=== PATIENT | male | born 1945 | race Caucasian/White ===

== ENCOUNTER 2017-04-19 18:37 | Inpatient (IN) | payer MEDICARE ==
[~2017-04-19] VITALS: Ht 182.9 cm; Wt 109.8 kg
[~2017-04-19 18:37] MED LIST: A & D OINTMENT1 OIN EXT; ASPIRIN325 M2 PO; ATIVAN0.5 MG PO; AUGMENTIN 875-1 EACH PO; CELEXA10 MG PO; CEPHALEXIN500 M3 PO; CITALOPRAM HBR20 MG PO; COUMADIN 10 MG10 MG PO; COUMADIN7.5 M1 PO; ESCITALOPRAM20 MG PO; FISH OIL500 M1 PO; FOLIC ACID 1 MG PO; GOOD NEIGHBOR100 M5 PO; LASIX20 MG PO; LOPRESSOR 25MG25 MG PO; LOVENOX 6060 MG/0.6 SC; MEDROL DOSEPAK1 PAC PO; MULTIVITAMIN1 TAB PO; PREDNISONE10 M2 PO; PRILOSEC40 MG PO; VENTOLIN H0.09 MG/Ac INH; VITAMIN C500 M3 PO; ZINC OXIDE EXT; ZINC SULFATE 2220 MG PO
--- NOTE | 2017-04-19 18:41 | NUR ---
PT SON #[phone] ABHI
--- NOTE | 2017-04-19 18:42 | NUR ---
PT MEDICATED WITH NARCAN 0.4MG IV
--- NOTE | 2017-04-19 18:49 | ED AMS/SEIZURE/WEAK/DIZZY ---
History of Present Illness General Chief Complaint: General Adult Stated Complaint: UNRESPONSIVE Source: patient, family, old records Exam Limitations: intoxication Vital Signs & Intake/Output Vital Signs & Intake/Output Vital Signs Date Time Temp Pulse Resp B/P B/P Pulse O2 O2 Flow FiO2 Mean Ox Delivery Rate 04/22 0807 95 Nasal 4.0L Cannula 04/22 0600 83 16 100/65 04/22 0400 99.6 98 18 134/78 04/22 0400 93 Nasal 4.0L Cannula 04/22 0200 98 18 119/74 04/22 0000 99.2 92 16 134/70 04/22 0000 94 Nasal 4.0L Cannula 04/22 0000 99.2 92 16 134/70 94 Nasal 4.0L Cannula 04/21 2200 106 16 136/81 04/21 2000 100.0 94 16 124/74 04/21 2000 96 Nasal 4.0L Cannula 04/21 1800 88 16 114/70 04/21 1621 94 Nasal 5.0L Cannula 04/21 1600 99.6 92 16 92/54 04/21 1600 95 Nasal 5.0L Cannula 04/21 1401 93 Nasal 5.0L Cannula ED Intake and Output 04/22 0000 04/21 1200 Intake Total 2019 1199 Output Total 4020 650 Balance -2000 549 Intake, IV 1988 979 Intake, Oral 30 220 Number 0 0 Bowel Movements Output, Urine 4020 650 Patient 97.522 kg Weight Allergies Coded Allergies: NO KNOWN ALLERGIES (UNKNOWN 04/21/17) Reconcile Medications Citalopram Hydrobromide (Citalopram HBr) 20 MG TABLET 1 TAB PO DAILY ANXIETY/ DEPRESSION (Reported) Omeprazole (Prilosec) 40 MG ECC 1 TAB PO DAILY GERD (Reported) Warfarin Sodium (Coumadin) 7.5 MG TABLET 1 TAB PO DAILY BLOOD THINNER ( Reported) Triage Nurses Notes Reviewed? yes HPI: 72M PMH atrial fibrillation, PE on Coumadin, polysubstance abuse with history of Methadone overdose brought in by family, found somnolent by son, progressed to unresponsive. On arrival to ED patient was apneic, unresponsive, pale. He was moved to a stretcher and immediately given Narcan IV 0.4mg. He then slowly woke up and became minimally responsive, but his breathing greatly improved. HR was 70's but improved to 80's with Narcan. After a few minutes he once again became somnolent and was given 0.8mg IV Narcan with excellent response. Now awake and able to answer questions with no complaints, placed on 100% oxygen. Per patient 's son they have Morphine and Methadone at the house and he is not sure what his father took. The son has now left the ER. Past History Travel History Traveled to [place] past 21 day No Medical History Any Pertinent Medical History? 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 FATHER (succumbed to heart failure at age 87 years). Hx Contributory? No Review of Systems Review of Systems Constitutional: Reports: no symptoms. EENTM: Reports: no symptoms. Respiratory: Reports: no symptoms. Cardiovascular: Reports: no symptoms. GI: Reports: no symptoms. Genitourinary: Reports: no symptoms. Musculoskeletal: Reports: no symptoms. Skin: Reports: no symptoms. Neurological/Psychological: Reports: no symptoms. Hematologic/Endocrine: Reports: no symptoms. Immunologic/Allergic: Reports: no symptoms. All Other Systems: Reviewed and Negative Physical Exam Physical Exam General Appearance: well developed/nourished, lethargic, mild distress, intoxicated, obese Head: atraumatic, normal appearance Eyes: Bilateral: other (Pupils pinpoint on arrival). Ears, Nose, Throat: normal pharynx, normal ENT inspection Neck: normal inspection, supple, full range of motion Respiratory: no respiratory distress, bilateral coarse breath sounds Cardiovascular: regular rate/rhythm Peripheral Pulses: 2+ femoral (R), 2+ femoral (L) Gastrointestinal: soft, non-tender Back: normal inspection, normal range of motion Extremities: normal range of motion Skin: intact, normal color Core Measures ACS in differential dx? No CVA/TIA Diagnosis: No Severe Sepsis Present: No Septic Shock Present: No Progress Differential Diagnosis: arrythmia, alcohol intoxication, anemia, benign positional vertigo, CVA/stroke, dehydration, drug intoxication, encephalitis, electrolyte imbalance, GI bleed, hypoglycemia, hypoxia, intracranial Hem., intracranial mass/tumor, labrynthitis, meningitis, Meniere's disease, migraine DIXON, multiple sclerosis, pneumonia, postural hypotension, presyncope, post- traumatic vertigo, sepsis, seizure disorder, subarachnoid Hem., UTI/pyelo, vertebrobasilar insuff Plan of Care: Orders Procedure Date/time Status PROTHROMBIN TIME 04/23 06 Active ICU LAB BUNDLE 04/23 06 Active CBC WITHOUT DIFFERENTIAL 04/23 06 Active EKG 04/22 1301 Active Martins, Insertion/Removal/Asses 04/22 0808 Active LIPASE 04/22 0540 Complete Lab Add-on Test 04/22 UNK Active Treatment of Swallowing 04/21 UNK Complete INCENTIVE SPIROMETRY TRX CHG 04/21 UNK Complete AEROSOL CHG 04/21 UNK Complete OXYGEN 04/21 UNK Complete OXYGEN DAILY CHARGE 04/21 UNK Complete THERAPIST ORDERS 04/21 UNK Complete Current Medications Sig/Latosha Start time Last Medication Dose Stop Time Status Admin Warfarin Sodium 7.5 MG COUMADIN 1700 ONE 04/22 1700 UNVr (Coumadin) 04/22 1701 Amoxicillin/ 875 MG Q12 04/22 1000 AC 04/22 Clavulanate Potassium 1021 (Augmentin) Citalopram 30 MG DAILY 04/22 1000 AC 04/22 Hydrobromide 1021 (Celexa) Lorazepam 2 MG ONE ONE 04/21 1430 CAN (Ativan) 04/21 1431 Folic Acid 1 MG DAILY 04/21 1301 AC 04/22 (Folic Acid) 1021 Multivitamins 1 TAB DAILY 04/21 1301 AC 04/22 (Theragran Vitamins) 1021 Thiamine HCl 100 MG DAILY 04/21 1301 AC 04/22 (Vitamin B1) 1021 Lorazepam 0 Q1P PRN 04/21 1300 AC (Ativan) Ondansetron HCl 4 MG Q6P PRN 04/21 0200 AC 04/21 (Zofran) 0803 Albuterol Sulfate 3 ML EVERY 4 HRS/AWAKE 04/20 1600 AC 04/22 (Proventil) 1215 Famotidine 20 MG DAILY 04/20 1000 AC 04/22 (Pepcid) 1021 Laboratory Tests 04/22/17 0540: Anion Gap 8, Estimated GFR > 60, Glucose 115 H, Calcium 8.4, Phosphorus 1.8 L, Magnesium 2.1, Total Bilirubin 1.4 H, AST 790 H, ALT 1145 H, Ammonia 24, Albumin 3.0 L, Lipase 419 H, PT 18.0 H, INR 1.72 H, CBC w Diff NO MAN DIFF REQ, RBC 4.29 L, MCV 84.9, MCH 27.9, RDW 18.1 H, MPV 8.6, Gran % 86.0 H, Lymphocytes % 9.0 L, Monocytes % 4.7, Eosinophils % 0.1, Basophils % 0.2, Absolute Granulocytes 8.3 H, Absolute Lymphocytes 0.9 L, Absolute Monocytes 0.5, Absolute Eosinophils 0, Absolute Basophils 0, PUBS MCHC 32.8 L Diagnostic Imaging: Viewed by Me: Radiology Read. Discussed w/RAD: Radiology Read. Radiology Impression: PATIENT: CARLOS TUCKER PRESENT AGE: 72 PATIENT ACCOUNT NO: [id number] : 47 LOCATION: [facility] ORDERING PHYSICIAN: MAGO BEARD MD SERVICE DATE: 04/19/17 EXAM TYPE: RAD - XRY-PORTABLE CHEST XRAY EXAMINATION: XR PORTABLE CHEST CLINICAL INFORMATION: Narcotic overdose. Unresponsive. COMPARISON: Chest radiography 03/01/2015. TECHNIQUE: Portable frontal view of the chest was obtained. FINDINGS: The lungs are well expanded. There is mild peribronchial thickening. No florid pulmonary edema. No definitive lobar consolidation. No mediastinal widening. No acute osseous abnormalities. IMPRESSION: 1. No overt/florid pulmonary edema. 2. Mild peribronchial thickening may reflect a degree of small airways inflammation or subtle interstitial edema. DICTATED BY: RAIN CHAPA MD DATE/TIME DICTATED:1945 [employer]SEM[employer] SUPERVISOR:WILLIE DATE/TIME TRANSCRIBED:04/19/171945 CONFIDENTIAL, DO NOT COPY WITHOUT APPROPRIATE AUTHORIZATION. <Electronically signed in Other Vendor System> SIGNED BY: RAIN CHAPA MD 04/19/171956 Initial ED EKG: atrial fibrillation, rate controlled, no ST changes Departure Departure Disposition: STILL A PATIENT Condition: Stable Clinical Impression Primary Impression: Methadone overdose Secondary Impressions: Acute renal failure, Acute respiratory failure with hypoxia, Hyperkalemia, Lactic acidosis Referrals: TOMMIE MENDEZ MD (PCP/Family) Departure Forms: Customer Survey General Discharge Information Admission Note Spoke With: MALU PIERCE MD Documentation of Exam: Documentation of any treatments & extenuating circumstances including Concerns Regarding Discharge (functional status, medication knowledge or non-compliance, living conditions, etc.) that warrant an admission rather than observation: ACUTE RESPIRATORY FAILURE IN THE SETTING OF OPIOID OVERDOSE WITH RENAL FAILURE, LACTIC ACIDOSIS, HYPERKALEMIA. WILL REQUIRE ICU ADMISSION FOR POSSIBLE NARCAN DRIP, MONITOR OF RENAL FUNCTION, POSSIBLE DIALYSIS, NEPHROLOGY AND CRITICAL CARE CONSULTS. Critical Care Note Critical Care Note Critical Care Time: 75-104 min
--- NOTE | 2017-04-19 18:56 | NUR ---
PT BROUGHT IN BY SON AFTER BEING FOUND WITH ALTERED MENTAL STATUS. PER SON, HE BELIEVED PT HAD BEEN DRINKING ALCOHOL AND MIXING WITH PRESCRIBED MEDICATION. PT ARRIVED UNRESPONSIVE WITH PINPOINT PUPILS, LIGHT GROANING TO PAINFUL STIMULI, UNABLE TO ANSWER ANY QUESTIONS RE: MEDICAL HX OR WHAT HE HAD INGESTED. TWO IVs ESTABLISHED IMMEDIATELY UPON ARRIVAL 0.4 NARCAN GIVEN IMMEDIATELY WITH SOME EFFECT.
[2017-04-19 19:19] LABS: ABSOLUTE BASOPHIL COUNT 0 /CUMM (0.0-0.2); ABSOLUTE EOSINOPHIL COUNT 0 /CUMM (0.0-0.7); ABSOLUTE GRANULOCYTE CT 13.4 /CUMM (1.4-6.5); ABSOLUTE LYMPH COUNT 0.8 /CUMM (1.2-3.4); BASOPHIL % 0.2 % (0.0-2.0); EOSINOPHIL % 0.1 % (0-5); GRANULOCYTE % 88.2 % (42.2-75.2); HEMATOCRIT 48.7 % (42-52); MEAN CORPUSCULAR HGB 27.5 PG (27.0-31.0); MEAN CORPUSCULAR HGB CONC 31.6 G/DL (33.0-37.0); MEAN CORPUSCULAR VOLUME 86.9 FL (80.0-94.0); PLATELET COUNT 230 /CUMM (130-400); RBC DISTRIBUTION WIDTH 18.9 % (11.5-14.5); WHITE BLOOD CELL COUNT 15.2 /CUMM (4.8-10.8)
--- NOTE | 2017-04-19 19:51 | NUR ---
CRITICAL TEST RESULTS [id number] CARLOS TUCKER 72 M TESTS AND RESULTS: POTASSIUM 7.9, LACTIC ACID 9.7 Results received and read back by: BHUPENDRA FOX Results received date and time: 04/19/171951 The following provider was notified of the results, and read the results back: MD BEARD Notified date and time: 04/19/17 at 1951
--- NOTE | 2017-04-19 19:57 | RADIOLOGY REPORT ---
EXAMINATION: XR PORTABLE CHEST CLINICAL INFORMATION: Narcotic overdose. Unresponsive. COMPARISON: Chest radiography 03/01/2015. TECHNIQUE: Portable frontal view of the chest was obtained. FINDINGS: The lungs are well expanded. There is mild peribronchial thickening. No florid pulmonary edema. No definitive lobar consolidation. No mediastinal widening. No acute osseous abnormalities. IMPRESSION: 1. No overt/florid pulmonary edema. 2. Mild peribronchial thickening may reflect a degree of small airways inflammation or subtle interstitial edema.
--- NOTE | 2017-04-19 20:36 | NUR ---
PT MORE AWAKE AND RESPONSIVE. ANSWERING QUESTIONS. AWARE OF WHERE HE IS AND WHY. ABLE TO GIVE FULL NAME AND . STILL SOMNOLENT, BUT EASILY AROUSED
--- NOTE | 2017-04-19 21:36 | NUR ---
BLOOD DRAWN AND SENT TO LAB [facility]
--- NOTE | 2017-04-19 22:10 | NUR ---
PT ASSIGNED TO ROOM 105 BED 1
--- NOTE | 2017-04-19 22:12 | History & Physical ---
CHARLENE FONSECA MD 04/19/17 2211: General Information and HPI MD Statement: I have seen and personally examined CARLOS TUCKER and documented this H&P. The patient is a 72 year old M who presented with a patient stated chief complaint of overdose and hypoxic respiratory failure. Source of Information: patient, family, old records Exam Limitations: unable to give history, intoxication History of Present Illness: 72 year old male with past medical history significant for HCV, atrial fibrillation and pulmonary embolism on warfarin, polysubstance abuse with multiple overdose admissions including one for methadone at [facility] was brought to the ED by the patient's son, González [phone], for increasing somnolence and difficulty breathing over the last several hours. On arrival the patient was apneic and unresponsive. After Narcan IV 0.4mg administration his breathing improved and became more arousable and responsive. He again became somnolent and was given 0.8mg IV Narcan with excellent response. Patient is now breathing stable with supplemental oxygen and non rebreather mask but still lethargic, without complaints but unable to provide much history. Patient reports injecting 2 bags of heroin. The patient's son González reports they were at a alliance party in [facility] where the patient admitted he took morphine from his brother and was drinking alcohol the night prior to admission. Per the son, patient was completely normal this morning but at [address] [facility] the patient was lethargic and during the drive his level of arousal and respiratory status dramatically worsened. The son knows that the patient took morphine and alcohol the night prior but is unsure of any exposures on the day of admission and denies any knowledge of the patient ever using heroin. Patient's son reports patient takes coumadin, lexapro and was prescribed amoxicillin uncertain the reason. Allergies/Medications Allergies: Coded Allergies: NO KNOWN ALLERGIES (11/12/12) Compliance With Home Meds: UNKNOWN Past History Travel History Traveled to [place] past 21 day No Medical History Neurological: NONE EENT: NONE Cardiovascular: AFIB Respiratory: NONE Gastrointestinal: GERD, Peñaloza's esophagua history of diaphragmatic hernia history of bilateral inguinal hernia history of esophageal ulcer Hepatic: hepatitis C Renal: benign prost hyperplasia Musculoskeletal: NONE Psychiatric: alcohol dependence, depression, polysubstance abuse Endocrine: NONE Blood Disorders: NONE Cancer(s): NONE LINUX ADMIN/Reproductive: NONE History of MRSA: No History of VRE: No History of CDIFF: No Pneumonia Vaccine: 11/15/12 Influenza Vaccine: 07/05/12 Surgical History Surgical History: ABD FISTULA Past Family/Social History Family History Relations & Conditions if any MOTHER (Succumbed to alcohol abuse at 53 years). FATHER (succumbed to heart failure at age 87 years). Psychosocial History Services at Home: None Review of Systems Review of Systems Constitutional: Reports: see HPI. Exam & Diagnostic Data Last 24 Hrs of Vital Signs/I&O Vital Signs Date Time Temp Pulse Resp B/P B/P Pulse O2 O2 Flow FiO2 Mean Ox Delivery Rate 04/19 2243 98.2 89 18 127/94 94 Non 100% ReBreather 04/19 2154 97.3 90 24 106/67 93 04/19 1926 Non ReBreather 04/19 1922 66 102/64 04/19 1907 97.2 Intake & Output 04/20 0800 04/20 0000 04/19 1600 Intake Total 2000 Output Total 1200 Balance 800 Intake, IV 2000 Output, Urine 1200 Physical Exam General Appearance Moderate Distress, lethargic, follows commands, responsive to touch and voice inconsistently, oriented to self only Skin No Rashes, No Breakdown Skin Temp/Moisture Exam: Warm/Dry Neck Supple, No JVD Cardiovascular Normal S1, Normal S2, No Murmurs (irregular rhythm) Lungs rhonchi b/l bases, diminshed air entry Abdomen Normal Bowel Sounds, Soft, No Tenderness, No Masses Neurological patient moving all extremities, responsive, no slurred speech, unable to perform neuro exam because of mental status Extremities No Edema, Normal Pulses, No Tenderness/Swelling Vascular Normal Pulses, Pulses Symmetrical Last 24 Hrs of Labs/Sebastián: Laboratory Tests 04/19/172154: Urine Osmolality 194 L 04/19/172154: Urine Opiates Screen > 4000.00 H, Methadone Screen 46, Barbiturate Screen < 60, Ur Phencyclidine Scrn < 6.00, Amphetamines Screen > 1450 H, U Benzodiazepines Scrn < 85, Urine Cocaine Screen < 50, Urine Cannabis Screen < 5.00, Urinalysis MOD H, Urine Color YEL, Urine Clarity CLEAR, Urine pH 6.0, Ur Specific [place] 1.010, Urine Protein NEG, Urine Ketones NEG, Urine Nitrite NEG, Urine Bilirubin NEG, Urine Urobilinogen 0.2, Ur Leukocyte Esterase NEG, Ur Microscopic SEDIMENT EXAMINED, Urine RBC 1-3, Urine WBC 1-3 H, Ur Epithelial Cells FEW, Urine Hemoglobin SMALL H, Urine Glucose NEG 04/19/17 2145: Anion Gap 18 H, Estimated GFR 15 L, BUN/Creatinine Ratio 8.5, Total Bilirubin 0.6, Direct Bilirubin 0.5 H, AST 158 H, ALT 137 H, Alkaline Phosphatase 62, Total Protein 7.3, Albumin 4.0, PT 28.4 H, INR 2.73 H, APTT 34, Ethylene Glycol Pending, Propylene Glycol Pending, Methyl Alcohol, Quant Pending 04/19/172128: Lactic Acid 5.8 H 04/19/172038: Serum Osmolality Cancelled 04/19/17 1900: pH 7.21 *L, pCO2 28 L, pO2 70 L, HCO3 11 L, ABG O2 Sat (Measured) 92.0 L, Carboxyhemoglobin 0.9 L, O2 Concentration % 80%, O2 Delivery Method PRB(1 VALVE ONLY), Phlebotomy Draw Site RIGHT RADIAL 04/19/17 1855: Anion Gap 27 H, Estimated GFR 13 L, BUN/Creatinine Ratio 6.2 L, Glucose 108 H, Serum Osmolality 310 H, Lactic Acid 9.7 H, Calcium 8.5, Magnesium 2.4 H, Total Bilirubin 0.6, AST 93 H, ALT 60, Alkaline Phosphatase 75, Creatine Kinase 1404 H, Troponin I 1.00 *H, Total Protein 8.8 H, Albumin 4.9, Globulin 3.9, Albumin/Globulin Ratio 1.3, CBC w Diff MAN DIFF ORDERED, RBC 5.60, MCV 86.9, MCH 27.5, RDW 18.9 H, MPV 9.0, Gran % 88.2 H, Lymphocytes % 5.2 L, Monocytes % 6.3, Eosinophils % 0.1, Basophils % 0.2, Absolute Granulocytes 13.4 H, Segmented Neutrophils 74, Band Neutrophils 9 H, Absolute Lymphocytes 0.8 L, Lymphocytes 9 L, Monocytes 8, Absolute Monocytes 1.0 H, Absolute Eosinophils 0 , Absolute Basophils 0, Platelet Estimate ADEQUATE, Normochromic RBCs VERIFIED, Anisocytosis 1+, Macrocytic Cells FEW, PUBS MCHC 31.6 L, Salicylates < 1.0, Acetaminophen < 10.0 L, Serum Alcohol < 10.0 04/19/17 0100: Lactic Acid Cancelled Microbiology 04/19 2223 UPPER RESP: Surveillance Culture - ORD 04/19 2223 GI: Surveillance Culture - ORD 04/19 2155 URINE ROUT: Urine Culture - RECD 04/19 2129 BLOOD: Blood Culture - RECD 04/19 2059 BLOOD: Blood Culture - RECD 04/19 2041 URINE ROUT: Urine Culture - CAN Cancelled: DUPLICATE ORDER Diagnostic Data EKG Results atrial fibrillation and peaked T waves CXR Results mild peribronchial thickening Other Results CT Head negative CT Chest and Abd/Pelvis Bilateral lower lobe pneumonia with patchy inferior right upper lobe airspace disease. Recommendation is for a followup chest series to be obtained following treatment and/or resolution of symptoms to assure resolution of this appearance. Left grade 1-2 hydroureteronephrosis without a demonstrable obstructive ureteral calculus. Hiatal hernia Assessment/Plan Assessment: 72 year old male with past medical history significant for HCV, atrial fibrillation and pulmonary embolism on warfarin, polysubstance abuse with multiple overdose admissions presents for presumed opioid overdose, acute hypoxic respiratory failure, acute renal failure, hyperkalemia and lactic acidosis. 1. Altered mental status: likely due to narcotic overdose, Utox + for amphetamine and opiates, patient clinically responded both respiratory and level of arousal to Narcan IV x 2 doses, pinpoint pupils assymetric R>L Opioid overdose: Begin naloxone infusion Admit to ICU Aspiration precautions, keep head of bed elevated Non contrast CT Head to rule out CVA NPO, swallow evaluation in AM Psych consultation for multiple overdoses Continue lexapro if swallow evaluation passed 2. Acute hypoxic respiratory failure: precipitated by opioid overdose, possibly heroin and prescription pain medications, patient responsive to naloxone and now on infusion. Currently afebrile with leukocytosis and CT evidence of pneumonia Supplemental oxygen via nonrebreather mask Titrate to Spo2 >90% CT Chest shows bilateral lower lobe pneumonia with patchy inferior right upper lobe airspace disease Started IV Unasyn for presumed aspiration pneumonia Pulmonology/Critical care consult TRC evaluation Sputum culture, urine culture, and blood cultures ordered 3. Acute renal failure: cooney placed, creatinine 4.5 at admission, likely prerenal versus intrarenal, BUN/Cr ratio was low at admission supporting intrarenal pathology Normal baseline renal function 1 year ago IVF hydration Trend BUN and creatinine, monitor electrolytes Nephrology consult Renal ultrasound Grade 1-[address] without demonstrable obstructive ureteral calculus but no IV contrast was used in this study Consider evaluation for nephrolithiasis with IV contrast once renal function improves Consider urology consultation for laser lithotripsy and/or stent placement 4. Hyperkalemia: secondary to acute renal failure, peaked T waves on presentation EKG Received calcium gluconate 1gram IV to stabilize the cardiac membrane in ED 10 units regular insulin and 25g IV dextrose Kayelexate Trend serum potassium levels, repeat above treatments as necessary until K<6 5. Acid/Base: ABG 7.2/28/70/11 Anion gap metabolic acidosis with acute respiratory compensation Lactic acidosis-elevated at 9.7 on admission, CO2 16 on admission Anion gap 27 on admission, secondary to elevated lactic acid Sodium bicarbonate drip began in ED, pH 7.2, stopped after 1000ml Continue IVF hydration with Normal Saline @ 150cc/hr Repeat blood gas in the AM Check serum osmoles, CK Elevated osmolar gap, follow up send out methanol, ethylene and propylene glycol Trend renal function and electrolytes 6. Positive troponins: likely secondary to demand ischemia in the setting of acute hypoxic respiratory failure First troponin 1.00 Trend serial troponins and EKGs Cardiology consult Echocardiogram No heparin gtt at this time 7. Atrial fibrillation: INR therapeutic 2.73 on coumadin Daily PT/INR, dose coumadin 7.5mg in AM Monitor heart rate 8. HepC: check liver function Pantoprazole NPO pending swallow evaluation DVT ppx-on coumadin INR therapeutic Full code As Ranked By This Provider Problem List: 1. Chronic hepatitis C 2. Depression 3. Opioid abuse 4. Acute respiratory failure with hypoxia 5. Altered mental status 6. Acute renal failure 7. Lactic acidosis 8. Hyperkalemia Core Measures/Miscellaneous Acute Coronary Syndrome ACS Diagnosis: No Cerebrovascular Accident CVA/TIA Diagnosis: No Congestive Heart Failure CHF Diagnosis: No VTE (View Protocol) VTE Risk Factors: Acute medical illness, Age > 40 No [facility] VTE prophylaxis d/t: No contraindications No VTE Pharm Prophylaxis d/t: No contraindications VTE Diagnosis: No VTE Type: NONE VTE Confirmed by (Test): NONE Sepsis (View Protocol) Severe Sepsis Present: No Septic Shock Septic Shock Present: No Miscellaneous Documentation Attending Case Discussed With: MALU PIERCE MD Primary Care Physician: TOMMIE MENDEZ MD Patient sees these Specialists none Level of Patient Care: Critical Care (CRI) STAN BURRIS, [facility] 04/19/17 5008: General Information and HPI Allergies/Medications Home Med list Amoxicillin/Potassium Clav (Augmentin 875-125 Tablet) 875 MG-125 MG TABLET 1 TAB PO BID ANTIBIOTIC, INFECTION Citalopram Hydrobromide (Citalopram HBr) 20 MG TABLET 1 TAB PO DAILY ANXIETY/ DEPRESSION (Reported) Omeprazole (Prilosec) 40 MG ECC 1 TAB PO DAILY GERD (Reported) Warfarin Sodium (Coumadin) 7.5 MG TABLET 1 TAB PO DAILY BLOOD THINNER ( Reported) Attending MD Review Statement Attending Statement Attending MD Statement: examined this patient, discuss w/resident/PA/MIXER OPERATOR VACUUM PAN SALT, agreed w/resident/PA/MIXER OPERATOR VACUUM PAN SALT Attending Assessment/Plan: 72 yo M with h/o polysubstance abuse with previous admissions to [facility] for drug OD while experimenting with recreational drugs, previous methadone OD ( 2012 at [facility]), untreated Hep C, Afib (2013), PE on coumadin, prediabetes, Peñaloza's esophagus, MSSA bacteremia, alcohol abuse, depression, is brought in unresponsive by son. On ER arrival, patient was apneic, pale and unresponsive. With Narcan, he slowly became more responsive and breathing improved. On my evaluation, patient was arousable but would doze off. According to history provided by son, they were at a alliance party at [place] last night, where patient was drinking alcohol and took morphine from his brother. Patient was ok this morning , but when returned in the afternoon, he found his father was lethargic. He immediately drove him down from [place] to [place], but noted his mental and respiratory status was worsening. Son is not aware of what his father might have taken. After patient received Narcan, he did report shooting up 2 bags of heroin, but he was unable to provide us more information. Vitals: afebrile, HR 90, BP 127/94, RR 16-18, sats 94% on 100% NRB. Exam: lethargic, arousable but would dose off, able to protect airway for now, dry mucous membranes, pupils are pinpoint and very sluggishly RTL. Chest b/l rhonchi , Heart S1S2 irregularly irregular, Abd soft, nontender, LE: no edema. Neuro: moving all extremities, limited exam, no obvious deficit. Labs: WBC 15.2, bands 9, H/H 15.4/48.7, INR 2.73, Na 141, K 7.9, bicarb 16, AG 27, BUN 28, creat 4.5 (baseline 0.7-0.9), glucose 108, S. Osm 310, lactic acid 9.7, Mag 2.4, T. Bili 0.6, AST 93, ALT 60, CK 1404, Trop 1.00. UA clear. U. Osm 194. Salicylate < 1.0, Tylenol < 10. Alcohol < 10. Utox positive for opiates and amphetamines. AB.//70/11. EKG: Afib, with peaked T-waves in V3-6. CXR: no pulmonary edema, mild peribronchial thickening small airways inflammation or interstitial edema. CT C/A/P: bilateral lower lobe pneumonia with patchy inferior right upper lobe airspace disease, left hydroureteronephrosis without obstructive ureteral calculus, hiatal hernia. Head CT: neg. Echo (2015): EF 70%. 1. AMS and acute hypoxemic respiratory failure in the setting of opiate intoxication and aspiration pneumonia. ICU admit, aspiration precautions, TRC nebs, O2 supplementation to keep sats > 92%, if patient unable to protect airway will keep low threshold for intubation, Narcan drip initiated until patient more awake/ alert. NPO, panculture, IV fluids, IV Unasyn. [facility] consult (Dr. Paez) aware. 2. CUATE with hyperkalemia and EKG changes. CUATE is likely pre-renal from dehydration. Cooney placed, monitor I/O's, aggressive IV fluid hydration, ICU bundle Q4 hourly, monitor renal functions. Treat hyperkalemia and ensure reversal of EKG changes. Check urine lytes. Renal ultrasound in AM. Nephro consult. There is CT evidence of left sided hydroureteronephrosis w/o obstructive calculus, although this was a noncontrast study. Would consider Urology consult for possible stent placement. 3. High AG metabolic acidosis with adequate respiratory compensation, 2/2 lactic acidosis. Sodium bicarb drip was initiated in ER, will continue until bicarb is > 18. Continue IV fluids. Trend lactic acid. Recheck ABG in AM. We checked an osmolar gap measured serum osm 310 calculated serum osm 298 = 12, which could indicate possibility of ingestion of substances such as ethylene glycol, methanol or propylene glycol. We will check these levels, continue current management. 4. Elevated troponin likely demand ischemia vs. NSTEMI. Will check serial EKG and troponin until peak, aspirin 300 mg SD, obtain Echo, Cardio consult. Check lipid panel, TSH, free T4 and HbA1c. Patient is currently anticoagulated (INR 2.73) on coumadin. 5. Elevated CK and transaminitis in the setting of drug overdose. Continue IV fluids and trend CK and LFTs. GI ppx IV PPI, DVT ppx therapeutic INR on coumadin. Full code. TTS > 50 mins. HAILEE REAGAN 04/20/17 0032: Resident Review Statement Resident Statement: examined this patient, discussed with record label intern, agreed with record label intern Other Findings: Patient is 72-year-old man with past medical history significant for polysubstance abuse, untreated hepatitis C, history of PE and atrial fibrillation on Coumadin, Peñaloza esophagitis, alcohol abuse and depression, last admission at [facility] with scrotal cellulitis in 2015 was brought in by son to ER today with respiratory distress and unresponsiveness. At the time of interview patient was alert at times and responsive to vocal, months but was dozing off frequently. He admitted that he injected himself with heroin in left arm but wasn't able to quantify accurately and was denying taking any other medications. He wasn't able to give us other information and rest of the history was taken from his son González on phone. According to her son they were at their uncle's house yesterday with family get together and had alcohol all night as well as his father took some narcotic pain medication from his uncle. He was not aware if he has taken any here when. According to him his father was okay this morning and after that he left and came back around 4 PM and found his father was slightly drowsy and they were coming back from [facility] to [facility] his respiratory status was compromising continuously and by the time they reach [facility] he was cyanosed and totally unresponsive. In ER he was given 4 mg of Narcan first and repeat 8 mg with minimum arousal. Patient denied any chest pain, palpitations, headache, dizziness, nausea, vomiting, urinary or bowel complaints. His son also denied any episode of vomiting en route. Vital signs at admission were temperature 97.2, pulse 66, blood pressure 102/64 and he was saturating 93% on 100% nonrebreather. Labs were WBC count 15.2, hemoglobin 15.4, platelet count 2:30, sodium 141, potassium 7.9, anion gap 27, BUNs 28, creatinine 4.5, lactic acid 9.7, troponin 1.00, INR 2.73, urine was clear, toxicology screen showed positive for opiates and amphetamines. ABGs showed pH 7.21/28/70/11 Chest x-ray showed no pulmonary edema but mild peribronchial thickening. Chest CT and abdominopelvic CT shows bilateral lower lobe pneumonia with patchy infiltrate right upper lobe, left grade 1-2 hydroureter a Brandeis nephrosis without obstructive ureteral calculus CT head was negative for any acute intracranial pathology. EKG showed atrial fibrillation peaked T waves with no acute ST-T wave changes Physical examination Drowsy, oriented to place HEENT head or traumatic, bilateral small pupil, left pinpoint 1 mm, right pupil sluggish 2 mm. Neck supple Chest bilateral rhonchi Heart S1-S2 normal irregularly irregular with no added sounds Abdomen soft no organomegaly Extremities showed no edema No neurological examination performed due to physical condition but normal muscle tone Assessment and plan 72-year-old gentleman with history of polysubstance abuse, alcohol abuse, untreated hep C, history of pulmonary embolism and atrial fibrillation on Coumadin, history of scrotal cellulitis came in in unresponsive state responded to Narcan most likely opiate overdose as well as U tox showed amphetamine use as well. On arrival he was found to be in profound height hypoxemic respiratory failure most likely due to opiate overdose and also was sent acute renal failure leading to hyperkalemia. He also has elevated anion gap metabolic acidosis/lactic acidosis but calculated osmolar gap was 12 and ethylene glycol, methanol and propylene glycol overdose would be in differentials and were sent. We will admit patient in ICU and will take care for the following problems Problem list 1. Acute hypoxemic respiratory failure most likely due to opiate overdose 2. Acute kidney injury most likely due to narcotic overdose leading to hyperkalemia 3. Anion gap metabolic acidosis could be due to lactic acidosis but given elevated osmolar gap which is 12 we will look for other causes including ethylene glycol overdose, propylene glycol and methanol overdose. 4. Hyperlipidemia with EKG changes 5. Elevated troponins most likely demand ischemia but we will rule out ACS with serial to scan EKGs 6. Elevated CPK most likely due to drug overdose/electrolyte imbalance Plan 1. We will admit patient in ICU 2. We will check his labs at every 4 hours 3. For his hyperkalemia patient was given dextrose and insulin with calcium gluconate in ER and repeat potassium was still elevated to 6.9 and was again given calcium gluconate with dextrose and insulin. EKG does show peak T waves. We will order when necessary Kayexalate as well. 4. Patient was started on bicarbonate drip in ER we will give one bag and if bicarbonate, up to 18-20. Bicarbonate drip 5. We will repeat ABGs in a.m. 6. Aspiration precautions and nothing by mouth and will do formal swallow relation once he would be more alert 7. As he was dozing off frequently and his pupils were pinpoint we will start him on Narcan drip and was titrated accordingly 8. Given his acute kidney injury and CPK elevation we will give him fluids at rate 150. He was given 1 bolus ER 9. By reviewing his imaging study he most likely aspirate and we will start him on Unasyn and we will add chest dose according to his renal function 10. His lactic acid was elevated and we will keep trending to normal 11. He also showed elevated troponins with no acute ST-T wave changes most likely demand ischemia. Rashaad Yanez MD was informed but we will request formal consultation with Dr. Hung in a.m. Will repeat echo in a.m. and also we will trend troponin and EKG 12. As his osmolar gap was elevated to 12 we will send ethylene glycol, methanol and propylene glycol levels. 13. We will request renal ultrasound in a.m to rule out any renal pathology. We will also place a Cooney's catheter to rule out any postrenal obstruction. 14. Intake and output record 15. We will continue daily Coumadin dosing Patient is full code Nothing by mouth Pharmacological DVT prophylaxis with Coumadin .
--- NOTE | 2017-04-19 22:14 | NUR ---
CRITICAL TEST RESULTS [id number] CARLOS TUCKER 72 M TESTS AND RESULTS: LACTIC ACID 5.8 Results received and read back by: BHUPENDRA FOX Results received date and time: 04/19/17 3572 The following provider was notified of the results, and read the results back: HOUSE STAFF Notified date and time: 04/19/17 at 2418
[2017-04-19 22:21] LABS: PT 28.4 SEC (9.4-12.5); PTT 34 SEC (25-37)
--- NOTE | 2017-04-19 22:28 | NUR ---
PT TO AND FROM CAT SCAN WITHOUT DIFFICULTY
--- NOTE | 2017-04-19 22:38 | CT SCAN REPORT ---
EXAMINATION: CT CHEST, ABDOMEN AND PELVIS WITH CONTRAST CLINICAL INFORMATION: Respiratory failure, sepsis. Unresponsive. COMPARISON: 08/01/2016. TECHNIQUE: Contiguous axial thin section helical images of the chest, abdomen and pelvis were performed without oral or IV contrast. The data set was reformatted in the coronal and sagittal planes and reviewed on an independent workstation. DLP: 1711 mGy-cm. FINDINGS: The heart is of normal size. There is no pericardial effusion. There is neither mediastinal, hilar nor axillary lymphadenopathy. There are no chest wall masses. Review of lung windows demonstrates bilateral lower lobe infiltrates. There is also patchy airspace disease within the inferior right upper lobe. There are no pleural effusions. There is a moderate hiatal hernia. The liver is of normal size and attenuation without focal lesions nor intrahepatic biliary ductal dilation. A normal gallbladder is identified. There is no wall thickening or discernible pericholecystic fluid. The spleen, pancreas, adrenal glands are unremarkable. There is no nephrolithiasis. The right kidney is normal. There is left grade 1-2 hydroureteronephrosis. No obstructive ureteral calculus is identified. There is no abdominal free fluid. There is neither mesenteric nor retroperitoneal lymphadenopathy. Normal unopacified loops of small and large bowel are identified. There is no pelvic free fluid. The urinary bladder is nearly empty. A Martins catheter is in place. There is neither pelvic nor inguinal lymphadenopathy. Bone windows: Neither sclerotic nor lytic bone lesions are identified. IMPRESSION: Bilateral lower lobe pneumonia with patchy inferior right upper lobe airspace disease. Recommendation is for a followup chest series to be obtained following treatment and/or resolution of symptoms to assure resolution of this appearance. Left grade 1-2 hydroureteronephrosis without a demonstrable obstructive ureteral calculus. Hiatal hernia.
--- NOTE | 2017-04-19 22:38 | NUR ---
CRITICAL TEST RESULTS [id number] CARLOS TUCKER 72 M TESTS AND RESULTS: POTASSIUM 6.9 Results received and read back by: DEBRA RODIRGUEZ Results received date and time: 04/19/172238 The following provider was notified of the results, and read the results back: DR BEARD Notified date and time: 04/19/17 at [id number]
--- NOTE | 2017-04-19 22:55 | NUR ---
REPORT TO MANUEL MORA IN ICU
--- NOTE | 2017-04-19 23:29 | CT SCAN REPORT ---
EXAMINATION: CT HEAD WITHOUT CONTRAST CLINICAL INFORMATION: Altered mental status. COMPARISON: 02/18/2015. TECHNIQUE: Contiguous axial images of the brain were obtained without IV contrast. DLP: 624 mGy-cm. FINDINGS: There are no pathologic extra-axial fluid collections. The lateral, third, fourth ventricles are and mildly prominent, though stable, age-appropriate and concordant with the appearance of the sulci. There is no evidence for acute intraparenchymal hemorrhage or infarct. There is neither mass nor mass effect. There is no shift of midline structures. The paranasal sinuses and mastoid air cells are clear. There are no osseous lesions. IMPRESSION: No evidence for acute intracranial injury. Stable age-appropriate appearance of the brain.
--- NOTE | 2017-04-19 23:30 | Admission Certification ---
Admission Certification Certification Statement - As attending physician, I certify that at the time of - admission, based on clinical presentation, severity of - symptoms, need for further diagnostic testing and - therapeutic interventions, and risk of adverse outcomes - without in-hospital treatment, in my clinical assessment, - this patient requires an acute hospital stay for a minimum - of two nights or longer. I have also considered psychsocial - factors such as support system, advanced age, financial - issues, cognitive issues, and failed out-patient treatments, - past re-admission history, safety of patient, and lack of - compliance as applicable. Specific rationale supporting this admission is: Opiate intoxication, acute hypoxemic respiratory failure, CUATE, hyperkalemia, elevated troponin, anion gap metabolic acidosis with lactic acidosis, requiring ICU level of care.
[2017-04-20] VITALS: BP 100/60
--- NOTE | 2017-04-20 03:18 | NUR ---
PT RECEIVED FROM ER AT 2330, SEMI RESPONSIVE WAKES EASILY TO NAME BUT DOES NOT ANSWER QUESTIONS. URBINA TO COMMAND.ON NRB AT 80% O2 SAT 87% STARTED ON NARCAN GTT AT 0.25 MG/H CALCIUM GLUCONATE, DEXTROSE AND INSULIN GIVEN ORDERED. BICARB GTT INFUSING AT 150 ML/H. IV STARTED INTO LF #20 WITH NS AT 150/H. HAS SCATCHES ON BUTTOCKS W/O REDNESS OR DISCHARGE. WORLEY DRAINING QS. RECTAL TUBE ORDERED FOR ENEMA. ACCUCHECK 148 BEFOR INSULIN AND 136 ONE HOUR AFTER INSULIN AND DEXTROSE WAS GIVEN. B/W AND EKG DONE. DR FONSECA UP TO SEE PT AWARE OF LOW O2 SAT OF 90-91 AND LUNG CONGESTION RHONCHI THROUOUT LUNG FIELD HAS CONGESTED COUGH BUT DOES NOT EXPECTORATE. NARCAN GTT AT 0.4 MG/H PT WAKES TO COMMAND BUT DOES NOT ANSWER QUESTIONS DR FONSECA AWARE, BICARB GTT D/C AT 0230. BED ALARM ON.
[2017-04-20 05:09] LABS: ABSOLUTE BASOPHIL COUNT 0 /CUMM (0.0-0.2); ABSOLUTE EOSINOPHIL COUNT 0 /CUMM (0.0-0.7); ABSOLUTE GRANULOCYTE CT 4.5 /CUMM (1.4-6.5); ABSOLUTE LYMPH COUNT 0.6 /CUMM (1.2-3.4); ABSOLUTE MONOCYTE COUNT 0.3 /CUMM (0.10-0.60); EOSINOPHIL % 0 % (0-5)
[2017-04-20 05:14] LABS: BASOPHIL % 0.1 % (0.0-2.0); MEAN CORPUSCULAR HGB 27.6 PG (27.0-31.0); MEAN CORPUSCULAR HGB CONC 32.2 G/DL (33.0-37.0); MEAN CORPUSCULAR VOLUME 85.6 FL (80.0-94.0); MEAN PLATELET VOLUME 9.2 FL (7.4-10.4); PLATELET COUNT 147 /CUMM (130-400); RBC DISTRIBUTION WIDTH 18.8 % (11.5-14.5); RED BLOOD CELL CT 4.74 /CUMM (4.70-6.10)
[2017-04-20 05:15] LABS: PT 37.1 SEC (9.4-12.5); WHITE BLOOD CELL COUNT 5.4 /CUMM (4.8-10.8)
[2017-04-20 05:16] LABS: HEMATOCRIT 40.6 % (42-52)
[2017-04-20 08:00] VITALS: BP 110/70
--- NOTE | 2017-04-20 08:15 | PN- Resident CRCU ---
Subjective HPI/CRCU Issues: Mr. Vargas was admitted to the ICU yesterday night after a heroin overdose requiring a narcan drip. He remains on the drip and is AAO x2 (person and place ). He appears to be lethargic at the time of interview and goes in and out of consciousness at times appearing to fall asleep. His respiratory rate is slightly elevated at 20 breaths per minute however his oxygen requirement is decreasing, now down to 80% nonrebreather from 100% overnight. He is not really aware of what happened however he does know that he shot up heroin. He does not admit to any other substance abuse including alcohol use. He denies any chest pain, dyspnea, palpitations, abdominal pain. He doesn't seem aware to the consequences of his actions/drug use. Cultures are not growing anything so far. Leukocytosis improving. Lactic acidosis improving. Troponin down to 0.58 from 1.0. Blood gas this morning shows improvement of his respiratory alkalosis with correction of his metabolic acidosis however he is retaining CO2 [7.22/54/80/22]. Additionally his creatinine kinase is slightly up 1532, as well as his INR which is up to 3.58. No cardiac events overnight. Objective Vital Signs & I&O Last 8 Hrs of Vitals and I&O: Vital Signs Date Time Temp Pulse Resp B/P B/P Pulse O2 O2 Flow FiO2 Mean Ox Delivery Rate 04/20 0400 93 Non 80% ReBreather 04/20 0000 87 Non 80% ReBreather 04/20 0000 99.8 85 20 100/60 87 Non 80% ReBreather 04/19 2243 98.2 89 18 127/94 94 Non 100% ReBreather 04/19 2154 97.3 90 24 106/67 93 04/19 1926 Non ReBreather 04/19 1922 66 102/64 04/19 1907 97.2 Exam General Appearance: well developed/nourished, alert, awake, lethargic Head: atraumatic, normal appearance Neck: normal inspection (no jvd) Respiratory: BL rhonchi diffuse, worse in the bases, apical BL exp wheezes Cardiovascular: regular rate/rhythm Gastrointestinal: normal bowel sounds, soft, non-tender, distended (?baseline), not rigid or tender Extremities: normal inspection, no edema Skin Temp/Moisture Exam: Warm/Dry Current Medications: Current Medications Sig/Latosha Start time Last Medication Dose Route Stop Time Status Admin Ampicillin Sodium/ 1,500 MG Q12H 04/20 1030 AC 04/20 Sulbactam Sodium IV 0908 Sodium Chloride 100 ML Ampicillin Sodium/ 0 .STK-MED ONE 04/193 DC Sulbactam Sodium .ROUTE Ampicillin Sodium/ 3,000 MG ONCE ONE 04/19 2045 DC 04/19 Sulbactam Sodium IV 04/19 2114 2231 Sodium Chloride 100 ML Aspirin 300 MG ONCE ONE 04/19 2245 DC 04/20 ID 04/19 2246 0049 Calcium Gluconate 1 GM ONCE ONE 04/20 0545 DC 04/20 Sodium Chloride 100 ML IV 04/20 0644 0548 Calcium Gluconate 1 GM ONCE ONE 04/19 2315 DC 04/20 Sodium Chloride 100 ML IV 04/20 0014 0021 Calcium Gluconate 0 .STK-MED ONE 04/19 2010 DC IV Calcium Gluconate 1 GM ONCE ONE 04/19 2000 DC 04/19 Sodium Chloride 100 ML IV 04/19 Citalopram 20 MG DAILY 04/20 1000 AC Hydrobromide PO Dextrose 25 GM .STK-MED ONE 04/20 0025 DC IV 04/20 0026 Dextrose 25 GM ONCE ONE 04/19 2315 DC 04/20 IV 04/19 2316 0034 Dextrose 25 GM ONCE ONE 04/19 2000 DC 04/19 IV 04/19 2001 2047 Dextrose 25 GM ONCE ONE 04/19 1900 DC 04/19 IV 04/19 190 190 Famotidine 20 MG DAILY 04/20 1000 CAN IV Famotidine 20 MG DAILY 04/20 1000 AC 04/20 IV 0907 Insulin Human Regular 1 UNITS .STK-MED ONE 04/20 0025 DC IV 04/20 0026 Insulin Human Regular 10 UNITS ONCE ONE 04/19 2315 DC 04/20 IV 04/19 2316 0034 Insulin Human Regular 10 UNITS ONCE ONE 04/19 2000 DC 07/ IV 04/19 2001 204 Naloxone HCl 4 MG Q24H 04/19 2300 AC 04/20 Dextrose/Water 1,000 ML IV 1017 Naloxone HCl 0.4 MG ONCE ONE 04/19 1900 DC 04/19 IV 04/19 190 191 Naloxone HCl 0.8 MG ONCE ONE 04/19 1900 DC 04/19 IV 071900 191 Naloxone HCl 0 .STK-MED ONE 04/19 1857 DC .ROUTE Pantoprazole Sodium 40 MG DAILY 04/20 1000 CAN IV Sodium Bicarbonate 150 MEQ Q6H 04/19 2030 DC 04/20 Dextrose/Water 1,000 ML IV 0138 Sodium Bicarbonate 75 MEQ CONTINOUS INFUSION 04/19 2015 CAN Sodium Chloride 1,000 ML IV Sodium Chloride 1,000 ML Q6H 04/19 2315 AC 04/20 IV 0908 Sodium Chloride 1,000 ML BOLUS ONE 04/19 1900 DC 04/19 IV 04/19 Sodium Polystyrene 60 ML ONCE ONE 04/19 2315 DC 04/20 Sulfonate ID 04/19 2316 0203 Impression/Plan Impression/Problem List Impression: Mr. Vargas is a 72-year-old gentleman with significant past medical history of atrial fibrillation on Coumadin for anticoagulation, previous pulmonary embolism in February 2015, untreated hepatitis C, depression with previous suicidal ideation, alcohol abuse, polysubstance abuse including heroine use regularly, previous MSSA sepsis and Escherichia coli pneumonia, scrotal cellulitis [no evidence of fourniers gangrene], perianal candidiasis who presented to the [facility] emergency department after being found unresponsive secondary to an heroine overdose. He responded to Narcan in the emergency department and is currently requiring a Narcan drip. Problem List/Assessment and Plan Respiratory: * Saturating in the low 90s on 80% oxygen via nonrebreather mask. * ABG showed resp acidosis with incomplete resp alkaosis. Based on his blood gas this morning he has corrected his metabolic acidosis w the bicarb drip which was d/c, but he resp acidosis now as he is retaining CO2. * His pH is much lower than would be expected with a CO2 of 54, and it is most likely also low 2/2 his lactic acidosis * Consider repeat ABG in 24 h after fluid hydration. I/D: * BL aspiration PNA * On day 2 of Unasyn 1.5q12 * Leukocytosis resolved, with no fevers in the last 24h Cardiovascular: * trop trending down to 0.58 from 1.00. * Echocardiogram performed and appreciated. EKG showed borderline sinus tachycardia without any ST T changes. Peak T waves results. Potassium down to 5.9, still slightly elevated s/p calcium gluconate this am and renetta-exylate. * We will repeat BEP to evalaute for the potassium level and trop level * Cardio consult with Dr. Hung placed and appreciated. * Afib on coumading, with supratherapeutic INR 3.58, we will hold coumadin today and recheck INR in am Hematology/oncology: * stable H/H with leukocytosis resolved. * Given his rhonchi, radiographic findings and risk of aspiration after being down, we will continue unasyn for presumed aspiration PNA, 1.5g q12h Metabolic: * CUATE improving * Most likely 2/2 combination pre-renal due to dehydration. * Elevated CPK less likely as it is relatively low. * Responding well to fluids. * Nephro consult appreciated. * Renal US showed no hydronephrosis, ?uro consult for hydroureter Alimentary: * NPO for now as he is still lethargic and may aspirate further Neurology: * Lethargic * Remains on Narcan drip for heroin OD * Plan to titrate off, when hes more awake DVT prophylaxis: * coumadin with supratherapeutic INR, ALPS for dvt ppx Problem List: 1. Lactic acidosis 2. Acute renal failure 3. Hyperkalemia 4. Chronic hepatitis C 5. Tachycardia Pain Ratin Tomorrow's Labs & Rationales: cbc, icu, trop if doesnt trend down Plan DVT/Prophylaxis: mechanical
[2017-04-20 09:16] LABS: GRANULOCYTE % 83.4 % (42.2-75.2)
--- NOTE | 2017-04-20 09:41 | PN- CRCU ---
Subjective HPI/Critical Care Issues: Mr. Vargas was admitted to the ICU yesterday night after a heroin overdose requiring a narcan drip. He remains on the drip and is AAO x2 (person and place ). He appears to be lethargic at the time of interview and goes in and out of consciousness at times appearing to fall asleep. His respiratory rate is slightly elevated at 20 breaths per minute however his oxygen requirement is decreasing, now down to 80% nonrebreather from 100% overnight. He is not really aware of what happened however he does know that he shot up heroin. He does not admit to any other substance abuse including alcohol use. He denies any chest pain, dyspnea, palpitations, abdominal pain. Cultures are not growing anything so far. Leukocytosis improving. Lactic acidosis improving. Troponin down to 0.58 from 1.0. Blood gas this morning shows improvement of his respiratory alkalosis with correction of his metabolic acidosis however he is retaining CO2 [7.22/54/80/22]. Additionally his creatinine kinase is slightly up 1532, as well as his INR which is up to 3.58. No cardiac events overnight Objective Current Medications: Current Medications Sig/Latosha Start time Last Medication Dose Route Stop Time Status Admin Ampicillin Sodium/ 1,500 MG Q12H 04/20 1030 AC 04/20 Sulbactam Sodium IV 0908 Sodium Chloride 100 ML Ampicillin Sodium/ 0 .STK-MED ONE 04/193 DC Sulbactam Sodium .ROUTE Ampicillin Sodium/ 3,000 MG ONCE ONE 04/19 2045 DC 04/19 Sulbactam Sodium IV 04/19 2114 2231 Sodium Chloride 100 ML Aspirin 300 MG ONCE ONE 04/19 2245 DC 04/20 [place] 04/19 2246 0049 Calcium Gluconate 1 GM ONCE ONE 04/20 0545 DC 04/20 Sodium Chloride 100 ML IV 04/20 0644 0548 Calcium Gluconate 1 GM ONCE ONE 04/19 2315 DC 04/20 Sodium Chloride 100 ML IV 04/20 0014 0021 Calcium Gluconate 0 .STK-MED ONE 04/19 2010 DC IV Calcium Gluconate 1 GM ONCE ONE 04/19 2000 DC 04/19 Sodium Chloride 100 ML IV 04/19 Dextrose 25 GM .STK-MED ONE 04/20 0025 DC IV 04/20 0026 Dextrose 25 GM ONCE ONE 04/195 DC 04/20 IV 04/19 2316 0034 Dextrose 25 GM ONCE ONE 04/19 2000 DC 04/19 IV 04/19 Dextrose 25 GM ONCE ONE 04/19 1900 DC 04/19 IV 04/19 190 190 Famotidine 20 MG DAILY 04/20 1000 CAN IV Famotidine 20 MG DAILY 04/20 1000 AC 04/20 IV 0907 Insulin Human Regular 1 UNITS .STK-MED ONE 04/20 0025 DC IV 04/20 0026 Insulin Human Regular 10 UNITS ONCE ONE 04/19 2315 DC 04/20 IV 04/19 2316 0034 Insulin Human Regular 10 UNITS ONCE ONE 04/19 2000 DC 04/19 IV 04/19 Naloxone HCl 4 MG Q24H 04/19 2300 AC 04/20 Dextrose/Water 1,000 ML IV 0019 Naloxone HCl 0.4 MG ONCE ONE 04/19 1900 DC 04/19 IV 04/19 190 191 Naloxone HCl 0.8 MG ONCE ONE 04/19 1900 DC 04/19 IV 04/19 190 191 Naloxone HCl 0 .STK-MED ONE 04/19 1857 DC .ROUTE Pantoprazole Sodium 40 MG DAILY 04/20 1000 CAN IV Sodium Bicarbonate 150 MEQ Q6H 04/19 2030 DC 04/20 Dextrose/Water 1,000 ML IV 0138 Sodium Bicarbonate 75 MEQ CONTINOUS INFUSION 04/19 2015 CAN Sodium Chloride 1,000 ML IV Sodium Chloride 1,000 ML Q6H 04/19 2315 AC 04/20 IV 0908 Sodium Chloride 1,000 ML BOLUS ONE 04/19 1900 DC 04/19 IV 04/19 195 1904 Sodium Polystyrene 60 ML ONCE ONE 04/19 2315 DC 04/20 Sulfonate [place] 04/19 2316 0203 Vital Signs & I&O Last 24 Hrs of Vitals and I&O: Vital Signs Date Time Temp Pulse Resp B/P B/P Pulse O2 O2 Flow FiO2 Mean Ox Delivery Rate 04/20 0400 93 Non 80% ReBreather 04/20 0000 87 Non 80% ReBreather 04/20 0000 99.8 85 20 100/60 87 Non 80% ReBreather 04/19 2243 98.2 89 18 127/94 94 Non 100% ReBreather 04/19 2154 97.3 90 24 106/67 93 04/19 1926 Non ReBreather 04/19 1922 66 102/64 07/16 1907 97.2 Intake & Output 04/20 1600 04/20 0800 04/20 0000 Intake Total 2437.6 2000 Output Total 610 1200 Balance 1827.6 800 Intake, IV 2437.6 2000 Output, Urine 610 1200 Impression/Plan Impression/Plan Impression/Plan: General Appearance Moderate Distress, lethargic, follows commands, responsive to touch and voice inconsistently, oriented to self only Skin No Rashes, No Breakdown Skin Temp/Moisture Exam: Warm/Dry Neck Supple, No JVD Cardiovascular Normal S1, Normal S2, No Murmurs (irregular rhythm) Lungs rhonchi b/l bases, diminshed air entry Abdomen Normal Bowel Sounds, Soft, No Tenderness, No Masses Neurological patient moving all extremities, responsive, no slurred speech, unable to perform neuro exam because of mental status Extremities No Edema, Normal Pulses, No Tenderness/Swelling Vascular Normal Pulses, Pulses Symmetrical IMPRESSION 72 year old male with past medical history significant for HCV, atrial fibrillation and pulmonary embolism on warfarin, polysubstance abuse with multiple overdose admissions presents for presumed opioid overdose, acute hypoxic respiratory failure, acute renal failure, hyperkalemia and lactic acidosis. ISSUES AMS - due to polysub OD ARF now better with sig hyperkalemia improving AG acidosis mainley related to low flow state, no clinical evidence of other causes of AG acidosis so far ie no sig osmoloar gap or dka etc Elevated troponin Altered lft and lft Mild hydronephrosis without obstructive physiology needs uro eval soon Resp failure due to decresed resp drive and aspiration pna with a component of acute lung injury from the drugs Myopathy from Polysub abuse PAfib on warfarin Hep c infection PRevius history of VTE ETOH abuse and depression Hiatal hernia with high aspiration risk REC Cont current meds ABx Ultrasound lower ext Watch inr Cont unasyn, h2 august IVF Bicarb drip can be stopped Watch sugar and potassium Urology eval Echo and call cardio (Dr Hung has seen the patient before i think) Pt is critically ill TTS 40 mins Psych eval please
--- NOTE | 2017-04-20 10:43 | Cons- Nephrology ---
General Information and HPI Consulting Request Date of Consult: 04/20/17 Requested By: STAN BURRIS,MALU Reason for Consult: Acute kidney injury Source of Information: old records Exam Limitations: unable to give history, clinical condition, intoxication History of Present Illness: This 72-year-old gentleman was found to have acute kidney injury when he presented with a heroin overdose. The patient is unable to give details, however, other writers report that he had been partying in [facility] and was brought to the emergency room after a drive from [facility] to hear by his son when it was noted that the patient had an ever decreasing level of consciousness. He was found to be hyperkalemic. His creatinine was found to be 4.5. He had been hospitalized in July of this past year with a serum creatinine that was running 0.8-0.9. There is no mention in the old record of any history of kidney stones or kidney infection. He was also found to have a suggestion of mild left-sided hydronephrosis on the CAT scan. He was also found to have a pneumonia or at least infiltrates. The patient himself and suggested no. He is currently on a Narcan drip. Reviewing the old record, there is no reports of any kidney stones or kidney infections. There is no protein or blood in his urinalysis looking back. His renal function has always been normal. It is unknown whether or not he was taking any Advil or relieves. He did have an elevated CPK. He is making urine and his creatinine is down to 2.0 on his most recent measurement. Allergies/Medications Allergies: Coded Allergies: NO KNOWN ALLERGIES (11/12/12) Home Med List: Citalopram Hydrobromide (Citalopram HBr) 20 MG TABLET 1 TAB PO DAILY ANXIETY/ DEPRESSION (Reported) Omeprazole (Prilosec) 40 MG ECC 1 TAB PO DAILY GERD (Reported) Warfarin Sodium (Coumadin) 7.5 MG TABLET 1 TAB PO DAILY BLOOD THINNER ( Reported) Review of Systems Review of Systems: Largely unobtainable area otherwise, he denies any dysuria polyuria he denies any nocturia. He denies any previous history of kidney stones or kidney infections. 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 FATHER (succumbed to heart failure at age 87 years). Psychosocial History Services at Home: None Smoking Status: Unknown If Ever Smoked ETOH Use: alcoholic Illicit Drug Use: heroin, also had a methadone overdose some years ago Exam & Diagnostic Data Vital Signs and I&O Vital Signs Date Time Temp Pulse Resp B/P B/P Pulse O2 O2 Flow FiO2 Mean Ox Delivery Rate 04/20 0400 93 Non 80% ReBreather 04/20 0000 87 Non 80% ReBreather 04/20 0000 99.8 85 20 100/60 87 Non 80% ReBreather 04/19 2243 98.2 89 18 127/94 94 Non 100% ReBreather 04/19 2154 97.3 90 24 106/67 93 04/19 1926 Non ReBreather 04/19 1922 66 102/64 04/19 1907 97.2 Intake & Output 04/20 1600 04/20 0400 04/19 1600 04/19 0400 04/18 1600 04/18 0400 Intake Total 2437.6 2000 Output Total 610 1200 Balance 1827.6 800 Intake, IV 2437.6 2000 Output, Urine 610 1200 Physical Exam General Appearance: well developed/nourished, no apparent distress, lethargic, overweight Head: atraumatic, normal appearance Eyes: Bilateral: PERRL, EOMI. Neck: normal inspection, supple, no midline tenderness Respiratory: decreased breath sounds Peripheral Pulses: 3+ femoral (R), 3+ femoral (L), 3+ popliteal (R), 3+ popliteal (L), 3+ tibialis posterior (R), 3+ tibialis posterior (L), 3+ dorsalis pedis (R), 3+ dorsalis pedis (L) Gastrointestinal: normal bowel sounds, no organomegaly Back: normal inspection Extremities: normal inspection, no edema Neurologic/Psych: no motor/sensory deficits Results Pertinent Lab Results: Laboratory Tests 04/20 04/20 04/20 0900 0615 0450 Blood Gas pH (7.35 - 7.45 PH) 7.22 *L pCO2 (35 - 45 TORR) 54 H pO2 (80 - 100 TORR) 80 HCO3 (21 - 28 MEQ/L) 22 ABG O2 Sat (Measured) (>96.0 %) 95.0 L P-50 (Temp Corrected) N Carboxyhemoglobin (1.5 - 5.0 %) 0.6 L O2 Concentration % 100 O2 Delivery Method NRB Chemistry Sodium (137 - 145 mmol/L) 138 Potassium (3.5 - 5.1 mmol/L) 4.9 Chloride (98 - 107 mmol/L) 104 Carbon Dioxide (22 - 30 mmol/L) 23 Anion Gap (5 - 16) 10 BUN (9 - 20 mg/dL) 38 H Creatinine (0.7 - 1.2 mg/dL) 2.0 H Estimated GFR (>60 ml/min) 33 L Glucose (65 - 99 mg/dL) 137 H Lactic Acid (0.7 - 2.1 mmol/L) Pending 2.3 H Calcium (8.4 - 10.2 mg/dL) 7.6 L Phosphorus (2.5 - 4.5 mg/dL) 4.6 H Magnesium (1.6 - 2.3 mg/dL) 1.9 Total Bilirubin (0.2 - 1.3 mg/dL) 0.5 AST (17 - 59 U/L) 251 H ALT (21 - 72 U/L) 205 H Creatine Kinase (55 - 170 U/L) 1533 H Troponin I (<0.11 ng/ml) Pending Albumin (3.5 - 5.0 g/dL) 3.1 L Miscellaneous Phlebotomy Draw Site RIGHT RADIAL 04/20 04/20 04/20 0450 0219 0100 Chemistry Sodium (137 - 145 mmol/L) 139 137 Potassium (3.5 - 5.1 mmol/L) 5.9 H 6.2 *H Chloride (98 - 107 mmol/L) 104 103 Carbon Dioxide (22 - 30 mmol/L) 24 21 L Anion Gap (5 - 16) 10 13 BUN (9 - 20 mg/dL) 40 H 36 H Creatinine (0.7 - 1.2 mg/dL) 2.6 H 3.2 H Estimated GFR (>60 ml/min) 25 L 19 L Glucose (65 - 99 mg/dL) 147 H 201 H Lactic Acid (0.7 - 2.1 mmol/L) Cancelled 3.1 H Calcium (8.4 - 10.2 mg/dL) 7.5 L 7.7 L Phosphorus (2.5 - 4.5 mg/dL) 5.3 H 6.2 H Magnesium (1.6 - 2.3 mg/dL) 1.8 1.8 Total Bilirubin (0.2 - 1.3 mg/dL) 0.5 0.4 AST (17 - 59 U/L) 283 H 243 H ALT (21 - 72 U/L) 212 H 198 H Creatine Kinase (55 - 170 U/L) 1532 H Troponin I (<0.11 ng/ml) 0.58 *H Albumin (3.5 - 5.0 g/dL) 3.3 L 3.4 L Coagulation PT (9.4 - 12.5 SEC) 37.1 H INR (0.90 - 1.17) 3.58 H Hematology CBC w Diff MAN DIFF ORDERED WBC (4.8 - 10.8 /CUMM) 5.4 RBC (4.70 - 6.10 /CUMM) 4.74 Hgb (14.0 - 18.0 G/DL) 13.1 L Hct (42 - 52 %) 40.6 L MCV (80.0 - 94.0 FL) 85.6 MCH (27.0 - 31.0 PG) 27.6 RDW (11.5 - 14.5 %) 18.8 H Plt Count (130 - 400 /CUMM) 147 MPV (7.4 - 10.4 FL) 9.2 Gran % (42.2 - 75.2 %) 83.4 H Lymphocytes % (20.5 - 51.1 %) 10.9 L Monocytes % (1.7 - 9.3 %) 5.6 Eosinophils % (0 - 5 %) 0 Basophils % (0.0 - 2.0 %) 0.1 Absolute Granulocytes (1.4 - 6.5 /CUMM) 4.5 Segmented Neutrophils (42.2 - 75.2 %) 47 Band Neutrophils (0.0 - 5.0 %) 32 H Absolute Lymphocytes (1.2 - 3.4 /CUMM) 0.6 L Lymphocytes (20.5 - 51.1 %) 11 L Monocytes (1.7 - 9.3 %) 7 Absolute Monocytes (0.10 - 0.60 /CUMM) 0.3 Absolute Eosinophils (0.0 - 0.7 /CUMM) 0 Absolute Basophils (0.0 - 0.2 /CUMM) 0 Metamyelocytes (0.0 - 1.0 %) 2 H Myelocytes (0 - 0 %) 1 H Platelet Estimate (ADEQUATE) ADEQUATE Polychromasia 1+ Poikilocytosis 1+ Ovalocytes 1+ PUBS MCHC (33.0 - 37.0 G/DL) 32.2 L 04/19 04/19 2155 2155 Toxicology Urine Opiates Screen (>2000 NG/ML) > 4000.00 H Methadone Screen (>300 NG/ML) 46 Barbiturate Screen (>200 NG/ML) < 60 Ur Phencyclidine Scrn (>25 NG/ML) < 6.00 Amphetamines Screen (>1000 NG/ML) > 1450 H U Benzodiazepines Scrn (>200 NG/ML) < 85 Urine Cocaine Screen (>300 NG/ML) < 50 Urine Cannabis Screen (>50 NG/ML) < 5.00 Urines Urinalysis MOD H Urine Color (YEL,AMB,STR) YEL Urine Clarity (CLEAR) CLEAR Urine pH (5.0 - 8.0) 6.0 Ur Specific [place] (1.001 - 1.035) 1.010 Urine Protein (NEG,<30 MG/DL) NEG Urine Ketones (NEG) NEG Urine Nitrite (NEG) NEG Urine Bilirubin (NEG) NEG Urine Urobilinogen (0.1 - 1.0 EU/dl) 0.2 Ur Leukocyte Esterase (NEG) NEG Ur Microscopic SEDIMENT EXAMINED Urine RBC (0 - 5 /HPF) 1-3 Urine WBC (0 - 2 /HPF) 1-3 H Ur Epithelial Cells (NONE,FEW) FEW Urine Hemoglobin (NEG) SMALL H Urine Osmolality (300 - 1000 MOSM/KG) 194 L Ur Random Creatinine (mg/dL) Pending U Random Total Protein (0 - 12 mg/dL) Pending Ur Random Sodium (30 - 90 mmol/L) Pending Ur Random Potassium (mmol/L) Pending Fraction Sodium Excret (<1% %) Pending Urine Glucose (N MG/DL) NEG 0704/19 Chemistry Sodium (137 - 145 mmol/L) 139 Potassium (3.5 - 5.1 mmol/L) 6.9 *H Chloride (98 - 107 mmol/L) 102 Carbon Dioxide (22 - 30 mmol/L) 18 L Anion Gap (5 - 16) 18 H BUN (9 - 20 mg/dL) 34 H Creatinine (0.7 - 1.2 mg/dL) 4.0 H Estimated GFR (>60 ml/min) 15 L BUN/Creatinine Ratio (7 - 25 %) 8.5 Serum Osmolality Cancelled Lactic Acid (0.7 - 2.1 mmol/L) 5.8 H Total Bilirubin (0.2 - 1.3 mg/dL) 0.6 Direct Bilirubin (< 0.4 mg/dL) 0.5 H AST (17 - 59 U/L) 158 H ALT (21 - 72 U/L) 137 H Alkaline Phosphatase (< 127 U/L) 62 Total Protein (6.3 - 8.2 g/dL) 7.3 Albumin (3.5 - 5.0 g/dL) 4.0 Coagulation PT (9.4 - 12.5 SEC) 28.4 H INR (0.90 - 1.17) 2.73 H APTT (25 - 37 SEC) 34 Toxicology Ethylene Glycol NEGATIVE Propylene Glycol (mg/dL) 0 Methyl Alcohol, Quant NEGATIVE 04/19 04/19 1900 1855 Blood Gas pH (7.35 - 7.45 PH) 7.21 *L pCO2 (35 - 45 TORR) 28 L pO2 (80 - 100 TORR) 70 L HCO3 (21 - 28 MEQ/L) 11 L ABG O2 Sat (Measured) (>96.0 %) 92.0 L Carboxyhemoglobin (1.5 - 5.0 %) 0.9 L O2 Concentration % 80% O2 Delivery Method PRB(1 VALVE ONLY) Chemistry Sodium (137 - 145 mmol/L) 141 Potassium (3.5 - 5.1 mmol/L) 7.9 *H Chloride (98 - 107 mmol/L) 97 L Carbon Dioxide (22 - 30 mmol/L) 16 L Anion Gap (5 - 16) 27 H BUN (9 - 20 mg/dL) 28 H Creatinine (0.7 - 1.2 mg/dL) 4.5 H Estimated GFR (>60 ml/min) 13 L BUN/Creatinine Ratio (7 - 25 %) 6.2 L Glucose (65 - 99 mg/dL) 108 H Serum Osmolality (285 - 295 MOSM/KG) 310 H Lactic Acid (0.7 - 2.1 mmol/L) 9.7 H Calcium (8.4 - 10.2 mg/dL) 8.5 Magnesium (1.6 - 2.3 mg/dL) 2.4 H Total Bilirubin (0.2 - 1.3 mg/dL) 0.6 AST (17 - 59 U/L) 93 H ALT (21 - 72 U/L) 60 Alkaline Phosphatase (< 127 U/L) 75 Creatine Kinase (55 - 170 U/L) 1404 H Troponin I (<0.11 ng/ml) 1.00 *H Total Protein (6.3 - 8.2 g/dL) 8.8 H Albumin (3.5 - 5.0 g/dL) 4.9 Globulin (1.9 - 4.2 gm/dL) 3.9 Albumin/Globulin Ratio (1.1 - 2.2 %) 1.3 Hematology CBC w Diff MAN DIFF ORDERED WBC (4.8 - 10.8 /CUMM) 15.2 H RBC (4.70 - 6.10 /CUMM) 5.60 Hgb (14.0 - 18.0 G/DL) 15.4 Hct (42 - 52 %) 48.7 MCV (80.0 - 94.0 FL) 86.9 MCH (27.0 - 31.0 PG) 27.5 RDW (11.5 - 14.5 %) 18.9 H Plt Count (130 - 400 /CUMM) 230 MPV (7.4 - 10.4 FL) 9.0 Gran % (42.2 - 75.2 %) 88.2 H Lymphocytes % (20.5 - 51.1 %) 5.2 L Monocytes % (1.7 - 9.3 %) 6.3 Eosinophils % (0 - 5 %) 0.1 Basophils % (0.0 - 2.0 %) 0.2 Absolute Granulocytes (1.4 - 6.5 /CUMM) 13.4 H Segmented Neutrophils (42.2 - 75.2 %) 74 Band Neutrophils (0.0 - 5.0 %) 9 H Absolute Lymphocytes (1.2 - 3.4 /CUMM) 0.8 L Lymphocytes (20.5 - 51.1 %) 9 L Monocytes (1.7 - 9.3 %) 8 Absolute Monocytes (0.10 - 0.60 /CUMM) 1.0 H Absolute Eosinophils (0.0 - 0.7 /CUMM) 0 Absolute Basophils (0.0 - 0.2 /CUMM) 0 Platelet Estimate (ADEQUATE) ADEQUATE Normochromic RBCs VERIFIED Anisocytosis 1+ Macrocytic Cells FEW PUBS MCHC (33.0 - 37.0 G/DL) 31.6 L Miscellaneous Phlebotomy Draw Site RIGHT RADIAL Toxicology Salicylates (0 - 20.0 mg/dL) < 1.0 Acetaminophen (10.0 - 30.0 ug/mL) < 10.0 L Serum Alcohol (<10 MG/DL) < 10.0 04/19 0100 Chemistry Lactic Acid Cancelled Imaging/Other Studies: PATIENT: CARLOS TUCKER PRESENT AGE: 72 PATIENT ACCOUNT NO: [id number] : 47 LOCATION: [facility] ORDERING PHYSICIAN: MALU PIERCE MD SERVICE DATE: 04/19/17 EXAM TYPE: CAT - CT ABD & PELVIS W/O IV CONTRAS; CT CHEST WO IV CONTRAST EXAMINATION: CT CHEST, ABDOMEN AND PELVIS WITH CONTRAST CLINICAL INFORMATION: Respiratory failure, sepsis. Unresponsive. COMPARISON: 08/01/2016. TECHNIQUE: Contiguous axial thin section helical images of the chest, abdomen and pelvis were performed without oral or IV contrast. The data set was reformatted in the coronal and sagittal planes and reviewed on an independent workstation. DLP: 1711 mGy-cm. FINDINGS: The heart is of normal size. There is no pericardial effusion. There is neither mediastinal, hilar nor axillary lymphadenopathy. There are no chest wall masses. Review of lung windows demonstrates bilateral lower lobe infiltrates. There is also patchy airspace disease within the inferior right upper lobe. There are no pleural effusions. There is a moderate hiatal hernia. The liver is of normal size and attenuation without focal lesions nor intrahepatic biliary ductal dilation. A normal gallbladder is identified. There is no wall thickening or discernible pericholecystic fluid. The spleen, pancreas, adrenal glands are unremarkable. There is no nephrolithiasis. The right kidney is normal. There is left grade 1-2 hydroureteronephrosis. No obstructive ureteral calculus is identified. There is no abdominal free fluid. There is neither mesenteric nor retroperitoneal lymphadenopathy. Normal unopacified loops of small and large bowel are identified. There is no pelvic free fluid. The urinary bladder is nearly empty. A Martins catheter is in place. There is neither pelvic nor inguinal lymphadenopathy. Bone windows: Neither sclerotic nor lytic bone lesions are identified. IMPRESSION: Bilateral lower lobe pneumonia with patchy inferior right upper lobe airspace disease. Recommendation is for a followup chest series to be obtained following treatment and/or resolution of symptoms to assure resolution of this appearance. Left grade 1-2 hydroureteronephrosis without a demonstrable obstructive ureteral calculus. Hiatal hernia. DICTATED BY: YEMI PRICE MD DATE/TIME DICTATED:04/19/172225 SERVICE CLEANER:WILLIE DATE/TIME TRANSCRIBED:04/19/172225 CONFIDENTIAL, DO NOT COPY WITHOUT APPROPRIATE AUTHORIZATION. <Electronically signed in Other Vendor System> SIGNED BY: YEMI PRICE MD 04/19/17 2663 Assessment/Plan Assessment/Recommendations Assessment: 1. Acute kidney injury. Likely mostly prerenal given its rapid response to fluids. His creatinine is down to 2.0 and he is making urine and his potassium is well controlled. This would appear to be due to perhaps occult hypotension. Could not elicit history of any other substances that might jeopardize kidney function. A CPK was only 1530. In order for a person to experience rhabdomyolysis affecting the kidney, the CPK should be greater than 10,000. It is also trending up. 2. Polysubstance abuse 3. History of MRSA of an abscess. 4. history of Peñaloza's esophagus 5. History of pulmonary emboli 6. History of atrial fibrillation 7. Hydronephrosis. During his hospital stay, it would be helpful to obtain an opinion from Dr. Montalvo. He is seen patient in the past Recommendations: 1. Continue with supportive care. 2. It is hoped that his kidney function will return to its previous normal state 3. No reason to consider urgent renal replacement therapy 4. Would also involved Dr. Montalvo
--- NOTE | 2017-04-20 11:04 | Cons- Cardiology ---
General Information and HPI Consulting Request Date of Consult: 04/20/17 Requested By: STAN BURRIS,MALU Reason for Consult: Altered mental status. Source of Information: patient, old records Exam Limitations: unable to give history, clinical condition History of Present Illness: Mr. Antonio Vargas is a 72-year-old male with a history of depression, suicidal ideation, hepatitis C, Peñaloza's esophagus, Peñaloza's ulcer, esophagitis, multilobar pneumonia, previous acute hypoxemic respiratory failure requiring intubation, previous staph aureus bacteremia, previous atrial fibrillation, previous pulmonary embolism on warfarin anticoagulation and alcohol abuse/withdrawal and polysubstance abuse with previous hospitalizations for overdose who presented to the ED on 04/19/2017 with altered mental status secondary to presumed polysubstance abuse including intravenous heroin that responded to naloxone who we are asked to evaluate and help manage in regard to a troponin I elevation. At present, the patient is somnolent, but answering questions with yes and no answers. He admits to IV heroin use. Allergies/Medications Allergies: Coded Allergies: NO KNOWN ALLERGIES (11/12/12) Home Med List: Citalopram Hydrobromide (Citalopram HBr) 20 MG TABLET 1 TAB PO DAILY ANXIETY/ DEPRESSION (Reported) Omeprazole (Prilosec) 40 MG ECC 1 TAB PO DAILY GERD (Reported) Warfarin Sodium (Coumadin) 7.5 MG TABLET 1 TAB PO DAILY BLOOD THINNER ( Reported) Review of Systems Review of Systems: A 14 point system review was attempted, but was unobtainable given patient's somnolence. Past History Travel History Traveled to [place] past 21 day No Medical History Neurological: NONE EENT: NONE Cardiovascular: AFIB Respiratory: NONE Gastrointestinal: GERD, Peñaloza's esophagua history of diaphragmatic hernia history of bilateral inguinal hernia history of esophageal ulcer Hepatic: hepatitis C Renal: benign prost hyperplasia Musculoskeletal: NONE Psychiatric: alcohol dependence, depression, polysubstance abuse Endocrine: NONE Blood Disorders: NONE Cancer(s): NONE ON CALL/Reproductive: NONE Surgical History Surgical History: ABD FISTULA Family History Relations & Conditions If Any: MOTHER (Succumbed to alcohol abuse at 53 years). FATHER (succumbed to heart failure at age 87 years). Psychosocial History Services at Home: None Smoking Status: Unknown If Ever Smoked ETOH Use: alcoholic Exam & Diagnostic Data Vital Signs and I&O Vital Signs Date Time Temp Pulse Resp B/P B/P Pulse O2 O2 Flow FiO2 Mean Ox Delivery Rate 04/20 0400 93 Non 80% ReBreather 04/20 0000 87 Non 80% ReBreather 04/20 0000 99.8 85 20 100/60 87 Non 80% ReBreather 04/19 2243 98.2 89 18 127/94 94 Non 100% ReBreather 04/19 2154 97.3 90 24 106/67 93 04/19 1926 Non ReBreather 04/19 1922 66 102/64 04/19 1907 97.2 Intake & Output 04/20 1600 04/20 0800 04/20 0000 04/19 1600 04/19 0800 04/19 0000 Intake Total 2437.6 2000 Output Total 610 1200 Balance 1827.6 800 Intake, IV 2437.6 2000 Output, Urine 610 1200 Physical Exam: Well-developed, overweight elderly male in no acute distress. Vital signs: See above. HEENT: Normocephalic, atraumatic, EOMI, slightly dry mucous membranes. Neck: No JVD, no bruits. Lungs: Clear to auscultation. Heart: S1, S2 with no murmur, gallop, or rub appreciated. PMI fifth ICS at MCL. Abdomen: Soft, nontender, positive bowel sounds. Extremities: No edema. Labs/Sebastián Results: Laboratory Tests 04/20 04/20 04/20 0900 0615 0450 Blood Gas pH (7.35 - 7.45 PH) 7.22 *L pCO2 (35 - 45 TORR) 54 H pO2 (80 - 100 TORR) 80 HCO3 (21 - 28 MEQ/L) 22 ABG O2 Sat (Measured) (>96.0 %) 95.0 L P-50 (Temp Corrected) N Carboxyhemoglobin (1.5 - 5.0 %) 0.6 L O2 Concentration % 100 O2 Delivery Method NRB Chemistry Sodium (137 - 145 mmol/L) 138 Potassium (3.5 - 5.1 mmol/L) 4.9 Chloride (98 - 107 mmol/L) 104 Carbon Dioxide (22 - 30 mmol/L) 23 Anion Gap (5 - 16) 10 BUN (9 - 20 mg/dL) 38 H Creatinine (0.7 - 1.2 mg/dL) 2.0 H Estimated GFR (>60 ml/min) 33 L Glucose (65 - 99 mg/dL) 137 H Lactic Acid (0.7 - 2.1 mmol/L) 2.7 H 2.3 H Calcium (8.4 - 10.2 mg/dL) 7.6 L Phosphorus (2.5 - 4.5 mg/dL) 4.6 H Magnesium (1.6 - 2.3 mg/dL) 1.9 Total Bilirubin (0.2 - 1.3 mg/dL) 0.5 AST (17 - 59 U/L) 251 H ALT (21 - 72 U/L) 205 H Creatine Kinase (55 - 170 U/L) 1533 H Troponin I (<0.11 ng/ml) 0.36 *H Albumin (3.5 - 5.0 g/dL) 3.1 L Miscellaneous Phlebotomy Draw Site RIGHT RADIAL 04/20 04/20 04/20 0450 0219 0100 Chemistry Sodium (137 - 145 mmol/L) 139 137 Potassium (3.5 - 5.1 mmol/L) 5.9 H 6.2 *H Chloride (98 - 107 mmol/L) 104 103 Carbon Dioxide (22 - 30 mmol/L) 24 21 L Anion Gap (5 - 16) 10 13 BUN (9 - 20 mg/dL) 40 H 36 H Creatinine (0.7 - 1.2 mg/dL) 2.6 H 3.2 H Estimated GFR (>60 ml/min) 25 L 19 L Glucose (65 - 99 mg/dL) 147 H 201 H Lactic Acid (0.7 - 2.1 mmol/L) Cancelled 3.1 H Calcium (8.4 - 10.2 mg/dL) 7.5 L 7.7 L Phosphorus (2.5 - 4.5 mg/dL) 5.3 H 6.2 H Magnesium (1.6 - 2.3 mg/dL) 1.8 1.8 Total Bilirubin (0.2 - 1.3 mg/dL) 0.5 0.4 AST (17 - 59 U/L) 283 H 243 H ALT (21 - 72 U/L) 212 H 198 H Creatine Kinase (55 - 170 U/L) 1532 H Troponin I (<0.11 ng/ml) 0.58 *H Albumin (3.5 - 5.0 g/dL) 3.3 L 3.4 L Coagulation PT (9.4 - 12.5 SEC) 37.1 H INR (0.90 - 1.17) 3.58 H Hematology CBC w Diff MAN DIFF ORDERED WBC (4.8 - 10.8 /CUMM) 5.4 RBC (4.70 - 6.10 /CUMM) 4.74 Hgb (14.0 - 18.0 G/DL) 13.1 L Hct (42 - 52 %) 40.6 L MCV (80.0 - 94.0 FL) 85.6 MCH (27.0 - 31.0 PG) 27.6 RDW (11.5 - 14.5 %) 18.8 H Plt Count (130 - 400 /CUMM) 147 MPV (7.4 - 10.4 FL) 9.2 Gran % (42.2 - 75.2 %) 83.4 H Lymphocytes % (20.5 - 51.1 %) 10.9 L Monocytes % (1.7 - 9.3 %) 5.6 Eosinophils % (0 - 5 %) 0 Basophils % (0.0 - 2.0 %) 0.1 Absolute Granulocytes (1.4 - 6.5 /CUMM) 4.5 Segmented Neutrophils (42.2 - 75.2 %) 47 Band Neutrophils (0.0 - 5.0 %) 32 H Absolute Lymphocytes (1.2 - 3.4 /CUMM) 0.6 L Lymphocytes (20.5 - 51.1 %) 11 L Monocytes (1.7 - 9.3 %) 7 Absolute Monocytes (0.10 - 0.60 /CUMM) 0.3 Absolute Eosinophils (0.0 - 0.7 /CUMM) 0 Absolute Basophils (0.0 - 0.2 /CUMM) 0 Metamyelocytes (0.0 - 1.0 %) 2 H Myelocytes (0 - 0 %) 1 H Platelet Estimate (ADEQUATE) ADEQUATE Polychromasia 1+ Poikilocytosis 1+ Ovalocytes 1+ PUBS MCHC (33.0 - 37.0 G/DL) 32.2 L 04/19 2152 Toxicology Urine Opiates Screen (>2000 NG/ML) > 4000.00 H Methadone Screen (>300 NG/ML) 46 Barbiturate Screen (>200 NG/ML) < 60 Ur Phencyclidine Scrn (>25 NG/ML) < 6.00 Amphetamines Screen (>1000 NG/ML) > 1450 H U Benzodiazepines Scrn (>200 NG/ML) < 85 Urine Cocaine Screen (>300 NG/ML) < 50 Urine Cannabis Screen (>50 NG/ML) < 5.00 Urines Urinalysis MOD H Urine Color (YEL,AMB,STR) YEL Urine Clarity (CLEAR) CLEAR Urine pH (5.0 - 8.0) 6.0 Ur Specific Cassel (1.001 - 1.035) 1.010 Urine Protein (NEG,<30 MG/DL) NEG Urine Ketones (NEG) NEG Urine Nitrite (NEG) NEG Urine Bilirubin (NEG) NEG Urine Urobilinogen (0.1 - 1.0 EU/dl) 0.2 Ur Leukocyte Esterase (NEG) NEG Ur Microscopic SEDIMENT EXAMINED Urine RBC (0 - 5 /HPF) 1-3 Urine WBC (0 - 2 /HPF) 1-3 H Ur Epithelial Cells (NONE,FEW) FEW Urine Hemoglobin (NEG) SMALL H Urine Osmolality (300 - 1000 MOSM/KG) 194 L Ur Random Creatinine (mg/dL) Pending U Random Total Protein (0 - 12 mg/dL) Pending Ur Random Sodium (30 - 90 mmol/L) Pending Ur Random Potassium (mmol/L) Pending Protein/Creatinin Ratio (< 0.2) Pending Fraction Sodium Excret (<1% %) Pending Urine Glucose (N MG/DL) NEG 04/195 9 2039 Chemistry Sodium (137 - 145 mmol/L) 139 Potassium (3.5 - 5.1 mmol/L) 6.9 *H Chloride (98 - 107 mmol/L) 102 Carbon Dioxide (22 - 30 mmol/L) 18 L Anion Gap (5 - 16) 18 H BUN (9 - 20 mg/dL) 34 H Creatinine (0.7 - 1.2 mg/dL) 4.0 H Estimated GFR (>60 ml/min) 15 L BUN/Creatinine Ratio (7 - 25 %) 8.5 Serum Osmolality Cancelled Lactic Acid (0.7 - 2.1 mmol/L) 5.8 H Total Bilirubin (0.2 - 1.3 mg/dL) 0.6 Direct Bilirubin (< 0.4 mg/dL) 0.5 H AST (17 - 59 U/L) 158 H ALT (21 - 72 U/L) 137 H Alkaline Phosphatase (< 127 U/L) 62 Total Protein (6.3 - 8.2 g/dL) 7.3 Albumin (3.5 - 5.0 g/dL) 4.0 Coagulation PT (9.4 - 12.5 SEC) 28.4 H INR (0.90 - 1.17) 2.73 H APTT (25 - 37 SEC) 34 Toxicology Ethylene Glycol NEGATIVE Propylene Glycol (mg/dL) 0 Methyl Alcohol, Quant NEGATIVE 04/19 04/19 1900 1855 Blood Gas pH (7.35 - 7.45 PH) 7.21 *L pCO2 (35 - 45 TORR) 28 L pO2 (80 - 100 TORR) 70 L HCO3 (21 - 28 MEQ/L) 11 L ABG O2 Sat (Measured) (>96.0 %) 92.0 L Carboxyhemoglobin (1.5 - 5.0 %) 0.9 L O2 Concentration % 80% O2 Delivery Method PRB(1 VALVE ONLY) Chemistry Sodium (137 - 145 mmol/L) 141 Potassium (3.5 - 5.1 mmol/L) 7.9 *H Chloride (98 - 107 mmol/L) 97 L Carbon Dioxide (22 - 30 mmol/L) 16 L Anion Gap (5 - 16) 27 H BUN (9 - 20 mg/dL) 28 H Creatinine (0.7 - 1.2 mg/dL) 4.5 H Estimated GFR (>60 ml/min) 13 L BUN/Creatinine Ratio (7 - 25 %) 6.2 L Glucose (65 - 99 mg/dL) 108 H Serum Osmolality (285 - 295 MOSM/KG) 310 H Lactic Acid (0.7 - 2.1 mmol/L) 9.7 H Calcium (8.4 - 10.2 mg/dL) 8.5 Magnesium (1.6 - 2.3 mg/dL) 2.4 H Total Bilirubin (0.2 - 1.3 mg/dL) 0.6 AST (17 - 59 U/L) 93 H ALT (21 - 72 U/L) 60 Alkaline Phosphatase (< 127 U/L) 75 Creatine Kinase (55 - 170 U/L) 1404 H Troponin I (<0.11 ng/ml) 1.00 *H Total Protein (6.3 - 8.2 g/dL) 8.8 H Albumin (3.5 - 5.0 g/dL) 4.9 Globulin (1.9 - 4.2 gm/dL) 3.9 Albumin/Globulin Ratio (1.1 - 2.2 %) 1.3 Hematology CBC w Diff MAN DIFF ORDERED WBC (4.8 - 10.8 /CUMM) 15.2 H RBC (4.70 - 6.10 /CUMM) 5.60 Hgb (14.0 - 18.0 G/DL) 15.4 Hct (42 - 52 %) 48.7 MCV (80.0 - 94.0 FL) 86.9 MCH (27.0 - 31.0 PG) 27.5 RDW (11.5 - 14.5 %) 18.9 H Plt Count (130 - 400 /CUMM) 230 MPV (7.4 - 10.4 FL) 9.0 Gran % (42.2 - 75.2 %) 88.2 H Lymphocytes % (20.5 - 51.1 %) 5.2 L Monocytes % (1.7 - 9.3 %) 6.3 Eosinophils % (0 - 5 %) 0.1 Basophils % (0.0 - 2.0 %) 0.2 Absolute Granulocytes (1.4 - 6.5 /CUMM) 13.4 H Segmented Neutrophils (42.2 - 75.2 %) 74 Band Neutrophils (0.0 - 5.0 %) 9 H Absolute Lymphocytes (1.2 - 3.4 /CUMM) 0.8 L Lymphocytes (20.5 - 51.1 %) 9 L Monocytes (1.7 - 9.3 %) 8 Absolute Monocytes (0.10 - 0.60 /CUMM) 1.0 H Absolute Eosinophils (0.0 - 0.7 /CUMM) 0 Absolute Basophils (0.0 - 0.2 /CUMM) 0 Platelet Estimate (ADEQUATE) ADEQUATE Normochromic RBCs VERIFIED Anisocytosis 1+ Macrocytic Cells FEW PUBS MCHC (33.0 - 37.0 G/DL) 31.6 L Miscellaneous Phlebotomy Draw Site RIGHT RADIAL Toxicology Salicylates (0 - 20.0 mg/dL) < 1.0 Acetaminophen (10.0 - 30.0 ug/mL) < 10.0 L Serum Alcohol (<10 MG/DL) < 10.0 04/19 0100 Chemistry Lactic Acid Cancelled Diagnostic Data EKG Results (04/20/2017) sinus tachycardia and low frontal lead voltage. CXR Results CXR (04/20/2017): 1. No overt/florid pulmonary edema. 2. Mild peribronchial thickening may reflect a degree of small airways inflammation or subtle interstitial edema. Other Results Head CT (04/19/2017): No acute intracranial process. CT chest/abdomen/pelvis (04/19/2017): Bilateral lower lobe pneumonia with patchy inferior right upper lobe airspace disease. Recommendation is for a followup chest series to be obtained following treatment and/or resolution of symptoms to assure resolution of this appearance. Left grade 1-2 hydroureteronephrosis without a demonstrable obstructive ureteral calculus. Hiatal hernia. Assessment/Plan Assessment/Plan [id number]-m w/ hx of depression, suicidal ideation, hep C, Peñaloza's esophagus, Peñaloza's ulcer, esophagitis, multilobar PNA, previous acute hypoxemic respiratory failure requiring intubation, previous Staph aureus bacteremia, previous AF, previous PE on warfarin and Etoh abuse/withdrawal and polysubstance abuse w/ previous hospitalizations for OD who presented to the ED on 2016 w/ AMS secondary to opioid abuse/OD that has improved with naloxone w/ initial acute hypoxic respiratory failure, CUATE, hyperkalemia, & lactic acidosis w/ a Troponin I elevation w/o acute ECG changes to suggest ischemia/injury. Suspect opiod induced hypotension and decreased by mouth intake were responsible for the CUATE, increased transaminases etc. His initial electrocardiogram revealed peaked T waves c/w with hyperkalemia secondary to CUATE that resolved with standard therapy. His troponin I was found to be modestly elevated and is trending downward,likely secondary to academic to demand ischemia (tachycardia, critical illness, etc.), CUATE, etc., and not an acute coronary syndrome. Recommendations: * Continue to treat in ICU w/ full supportive care, naloxone drip, volume resuscitation, antimicrobial therapy for pneumonia, etc. * Echocardiogram to assess left ventricular function. * Continue anticoagulation for previous atrial fibrillation and pulmonary emboli. * Follow-up on nephrology recommendations. * Psychiatric evaluation. Further recommendations will follow, Thank you. Consult Acknowledgment - Thank you for your consult request.
--- NOTE | 2017-04-20 11:38 | ULTRASOUND REPORT ---
EXAMINATION: US RETROPERITONEAL COMPLETE (RENAL) CLINICAL INFORMATION: Acute kidney insufficiency. Evaluate for renal pathology. COMPARISON: CT scan of the abdomen and pelvis dated 04/19/2017. Renal ultrasound dated 02/16/2015. TECHNIQUE: Real-time imaging of the kidneys and bladder. FINDINGS: RIGHT KIDNEY: 11.3 x 5.2 x 4.4 cm (SAG x AP x TRV). The kidney is normal in size, contour, and echogenicity. Renal cortical thickness is normal. No calculi or focal parenchymal lesions. No hydronephrosis. LEFT KIDNEY: 12.2 x 6.6 x 5.0 cm (SAG x AP x TRV). The kidney is normal in size, contour, and echogenicity. Renal cortical thickness is normal. No calculi or focal parenchymal lesions. No hydronephrosis. BLADDER: Decompressed by Martins catheter and not adequately assessed. IMPRESSION: 1. Bilaterally, kidneys are normal. No hydronephrosis seen. 2. Bladder decompressed by Martins catheter and not evaluated.
--- NOTE | 2017-04-20 12:04 | ECHOCARDIOGRAM REPORT ---
CARLOS TUCKER Age: 72 : 1945 Gender: M Exam Date: 04/20/2017 09:33 Exam Location: [facility] Ht (in): 72 Wt (lb): 220 BSA: 2.27 BP: 99 / 62 Ordering Physician: HAILEE REAGAN MD Referring Physician: HAILEE REAGAN MD Technologist: David Vega [facility] Room Number: 105 Indications: CARDIOMYOPATHY Rhythm: Sinus Technical Quality: Poor FINDINGS Left Ventricle Normal size left ventricle. Normal left ventricular wall thickness. No obvious regional wall motion abnormalities. Normal left ventricular ejection fraction visually estimated at >65%. Normal left ventricular diastolic filling pattern for age. Mildly increased resting left ventricular outflow tract velocity (1.6 m/s). Right Ventricle Moderate right ventricular dilatation. Right Atrium Normal right atrial size. Left Atrium Mild left atrial dilatation. Mitral Valve Mild mitral annular calcification. No mitral regurgitation. Aortic Valve Trileaflet aortic valve. No hemodynamically significant aortic stenosis. No aortic regurgitation. Tricuspid Valve Structurally normal tricuspid valve. Trace tricuspid regurgitation. Right ventricular systolic pressure estimated to be elevated at 40 mmHg. Mild pulmonary hypertension. Pulmonic Valve Pulmonic valve not well visualized, grossly normal. No pulmonic regurgitation. Pericardium No pericardial effusion. Great Vessels Dilated inferior vena cava. CONCLUSIONS Normal size left ventricle. Normal left ventricular wall thickness. Normal left ventricular ejection fraction visually estimated at > 65%. Normal left ventricular diastolic filling pattern for age. Mildly increased resting left ventricular outflow tract velocity (1.6 m/s). Moderate right ventricular dilatation. Normal right atrial size. Mild left atrial dilatation. Trace tricuspid regurgitation. Mild pulmonary hypertension. Dilated inferior vena cava. Davy Hung M.D. (Electronically Signed) Final Date: 20 April 2017 12:04 MEASUREMENTS (Male / Female) Normal Values 2D ECHO LV Diastolic Diameter PLAX 5.0 cm 4.2 - 5.9 / 3.9 - 5.3 cm LV Systolic Diameter PLAX 2.7 cm 2.1 - 4.0 cm LV Fractional Shortening PLAX 46.0 % 25 - 46 % LV Ejection Fraction 2D Teich 77.2 % IVS Diastolic Thickness 0.9 cm LVPW Diastolic Thickness 0.9 cm LV Relative Wall Thickness 0.4 RV Internal Dim ED PLAX 4.1 cm 1.9 - 3.8 cm LVOT Diameter 2.1 cm Aortic Root Diameter 3.4 cm LA Systolic Diameter LX 2.7 cm 3.0 - 4.0 / 2.7 - 3.8 cm LA Volume 46.0 cm 18 - 58 / 22 - 52 cm Ascending Aorta Diameter 3.5 cm DOPPLER AV Peak Velocity 182.0 cm/s AV Peak Gradient 13.2 mmHg AV Mean Velocity 117.0 cm/s AV Mean Gradient 6.0 mmHg AV Velocity Time Integral 29.9 cm LVOT Peak Velocity 158.0 cm/s LVOT Peak Gradient 10.0 mmHg LVOT Mean Velocity 95.2 cm/s LVOT Mean Gradient 4.0 mmHg LVOT Velocity Time Integral 30.5 cm LVOT Stroke Volume 105.6 cm AV Area Cont Eq vti 3.5 cm AV Area Cont Eq pk 3.0 cm MV Peak Velocity 95.1 cm/s MV Peak Gradient 3.6 mmHg MV Mean Velocity 64.6 cm/s MV Mean Gradient 2.0 mmHg Mitral E Point Velocity 80.0 cm/s Mitral A Point Velocity 78.5 cm/s Mitral E to A Ratio 1.0 MV PHT Velocity 100.0 cm/s MV Deceleration [place] 391.0 cm/s MV Pressure Half Time 76.7 ms MV Area PHT 2.9 cm MV Deceleration Time 208.0 ms TR Peak Velocity 274.0 cm/s TR Peak Gradient 30.0 mmHg Right Atrial Pressure 10.0 mmHg Pulmonary Artery Systolic Pressu 40.0 mmHg Right Ventricular Systolic Press 40.0 mmHg PV Peak Velocity 96.5 cm/s PV Peak Gradient 3.7 mmHg PV Mean Velocity 68.9 cm/s PV Mean Gradient 2.0 mmHg PV Velocity Time Integral 20.0 cm LV E' Lateral Velocity 12.7 cm/s Mitral E to LV E' Lateral Ratio 6.3 LV E' Septal Velocity 9.6 cm/s Mitral E to LV E' Septal Ratio 8.4
[2017-04-20 16:00] VITALS: BP 114/70
--- NOTE | 2017-04-20 16:33 | NUR ---
Sw collaboratng with ICU. SPoke with MD Ning about pt's OD on polysubstances and probable need for Substance abuse after care. SW also spoke with pt's RN Clementine who, had contact with pt's son. Son thinks pt may have been taking some of son's meds as well as street drugs. Son lives with pt. Son is a militarty Vet with injuries and meds. Sw to monitor for aftercare needs and is available upon request.
--- NOTE | 2017-04-20 18:37 | NUR ---
PT MORE AWAKE DAY PROGRESSED. HE REMAINS ON IV NARCAN AT 100MLS PER HOUR. IVF IS NOW NS AT 75MLS PER HOUR. HIS URINE IS DAV, WAS YELLOW EARLIER IN THE DAY. HE IS ABLE TO ANSWER SIMPLE QUESTIONS, BUT DOES NOT HAVE RECALL. MONITOR IS NSR. B/P 100-110/70. HE CONTINUES TO NOD OFF FREQUENTLY BUT WAKES TO VERBAL CUE. LABS DRAWN ORDERED. LAST LABS WERE FROM 1300.
--- NOTE | 2017-04-20 21:46 | NUR ---
PT ON NARCAN DRIP AT 0.4MG/ZD=183BL, SAS 4, AWAKENS QUICKLY TO VERBAL STIMULI, PT ALERT TO PERSON AND PLACE ONLY NOT TIME, "I DON'T PAY ATTENTION TO THAT", FOLLOWS ALL COMMANDS. NO C/O PAIN AT THIS TIME. HR SR 90'S NO ECTOPY, SBP 90'S TO 118'S. PT ON 70% HIGH FLOW NC, NPC NOTED, IF PT TAKES OFF O2 THEN DESAT'S TO 87-88%.
[2017-04-21] VITALS: BP 142/88
--- NOTE | 2017-04-21 00:46 | NUR ---
@2315 PT BED ALARM GOING OFF HR 114, PT WAS FOUND AT END OF BED PULLED OFF BP CUFF, IV HALF PULLED OUT, PT WAS DIAPHORETIC. PT STATED "I GOT TO GET OUT OF HERE", PT REDIRECTED EASILY. PT GIVEN FULL BATH, NEW IV PLACED. TITRATED NARCAN DRIP DOWN PER PROTOCOL. VITALS STABLE, NOTIFIED MD CHARLENE FONSECA OF ABOVE.
[2017-04-21 04:32] LABS: ABSOLUTE BASOPHIL COUNT 0 /CUMM (0.0-0.2); ABSOLUTE EOSINOPHIL COUNT 0 /CUMM (0.0-0.7); ABSOLUTE GRANULOCYTE CT 5.5 /CUMM (1.4-6.5); ABSOLUTE MONOCYTE COUNT 0.3 /CUMM (0.10-0.60); BASOPHIL % 0.3 % (0.0-2.0); EOSINOPHIL % 0.6 % (0-5); GRANULOCYTE % 80.3 % (42.2-75.2); MEAN CORPUSCULAR HGB 27.8 PG (27.0-31.0); MEAN CORPUSCULAR HGB CONC 32.9 G/DL (33.0-37.0); MEAN CORPUSCULAR VOLUME 84.5 FL (80.0-94.0); MEAN PLATELET VOLUME 9.4 FL (7.4-10.4); PLATELET COUNT 112 /CUMM (130-400); RBC DISTRIBUTION WIDTH 19.2 % (11.5-14.5); RED BLOOD CELL CT 4.11 /CUMM (4.70-6.10); WHITE BLOOD CELL COUNT 6.8 /CUMM (4.8-10.8)
[2017-04-21 04:37] LABS: PT 37.8 SEC (9.4-12.5)
[2017-04-21 04:44] LABS: HEMATOCRIT 34.8 % (42-52)
[2017-04-21 08:00] VITALS: BP 120/64
--- NOTE | 2017-04-21 08:13 | NUR ---
RESUMED PT CARE AT 0730. PT IS ALERT, ABLE TO IDENTIFY WHERE HE IS AND STATE HIS BIRTHDAY. WHEN ASKED THE MONTH HE REPLIED "THURSDAY". WHEN ASKED IF HE HAD STOMACH PAIN, HE REPLIED YES, BUT WAS UNABLE TO IDENTIFY WHERE. PT GIVEN ZOFRAN AND OFFERED BEDPAN. WHEN TRYING TO GET PT ON/OFF BEDPAN, PT UNABLE TO FOLLOW DIRECTIONS CONSISTENTLY; EX. ROLL, LIE FLAT AND KEPT TRYING TO SIT UP, DESPITE CONTINUOUS STEP BY STEP DIRECTIONS. PT REMAINS ON NARCAN GTT AT .2MG/HR = 50ML. HE IS ALERT DURING AM ASSESSMENT, BUT ABLE TO FALL TO SLEEP EASILY. HE IS NSR - ST ON THE MONITOR, 90-100'S, BP 140'S. HE IS ON 60% HF NC. LUNGS SOUND CLEAR. 95% 02 SAT. ABDOMEN SOFT AND DISTENDED. +BS/FLATUS. PT SET UP FOR BREAKFAST, REFUSING TO EAT. AM BLOOD SUGAR 106. NS AT 75ML/HR INFUSING. WORLEY INSITU W CLR YELLOW URINE. DRIED, ABRASIONS TO LOWER BACK PRESENT.
--- NOTE | 2017-04-21 09:40 | Cons- Urology ---
General Information and HPI Consulting Request Date of Consult: 04/21/17 Requested By: STAN BURRIS,MALU Reason for Consult: right hydronephrosis on renal US Source of Information: patient, old records Exam Limitations: no limitations History of Present Illness: 72 yr old with HCV, Afib, PE, substance abuse, brought by son due to altered mental status and SOB. Pt with multiple prior admissions from overdose. Noted to have ARF, Renal US performed with mild righ hydro. Pt now much more awake and alert. Denies voiding issues, denies renal colic. Allergies/Medications Allergies: Coded Allergies: NO KNOWN ALLERGIES (11/12/12) Home Med List: Citalopram Hydrobromide (Citalopram HBr) 20 MG TABLET 1 TAB PO DAILY ANXIETY/ DEPRESSION (Reported) Omeprazole (Prilosec) 40 MG ECC 1 TAB PO DAILY GERD (Reported) Warfarin Sodium (Coumadin) 7.5 MG TABLET 1 TAB PO DAILY BLOOD THINNER ( Reported) Current Medications: Current Medications Sig/Latosha Start time Last Medication Dose Route Stop Time Status Admin Albuterol Sulfate 3 ML EVERY 4 HRS/AWAKE 04/20 1600 AC 04/21 INH 0810 Ampicillin Sodium/ 1,500 MG Q12H 04/20 1030 AC 04/20 Sulbactam Sodium IV 2109 Sodium Chloride 100 ML Citalopram 20 MG DAILY 04/20 1000 AC 04/20 Hydrobromide PO 1711 Famotidine 20 MG DAILY 04/20 1000 AC 04/20 IV 0907 Naloxone HCl 4 MG Q10H 04/20 1900 DC Dextrose/Water 1,000 ML IV Naloxone HCl 4 MG Q10H 04/20 1000 AC 04/20 Dextrose/Water 1,000 ML IV 2109 Naloxone HCl 4 MG Q24H 04/19 2300 DC 04/20 Dextrose/Water 1,000 ML IV 1017 Ondansetron HCl 4 MG Q6P PRN 04/21 0200 AC 04/21 IV 0803 Sodium Chloride 1,000 ML Q6H 04/19 2315 DC 04/21 IV 04/21 0514 0803 Past History Medical History Neurological: NONE EENT: NONE Cardiovascular: AFIB Respiratory: pulmonary embolism Gastrointestinal: GERD, Peñaloza's esophagua history of diaphragmatic hernia history of bilateral inguinal hernia history of esophageal ulcer Hepatic: hepatitis C Renal: benign prost hyperplasia Musculoskeletal: NONE Psychiatric: alcohol dependence, depression, IV drug abuse, polysubstance abuse Endocrine: NONE Blood Disorders: NONE Cancer(s): NONE 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 FATHER (succumbed to heart failure at age 87 years). Psychosocial History Services at Home: None Smoking Status: Unknown If Ever Smoked ETOH Use: alcoholic Illicit Drug Use: heroin, also had a methadone overdose some years ago Employment History Retired? unknown Review of Systems Review of Systems Constitutional: Reports: malaise. EENTM: Denies: no symptoms. Cardiovascular: Reports: see HPI. Respiratory: Denies: no symptoms. GI: Reports: bloating. Genitourinary: Denies: no symptoms. Musculoskeletal: Denies: no symptoms. Skin: Denies: no symptoms. Exam & Diagnostic Data Vital Signs and I&O Vital Signs Date Time Temp Pulse Resp B/P B/P Pulse O2 O2 Flow FiO2 Mean Ox Delivery Rate 04/21 0829 94 Nasal 55% Cannula 04/21 0800 95 Nasal 60% Cannula 04/21 0800 98.7 94 12 120/64 95 Nasal 60% Cannula 04/21 0400 95 Nasal 60% Cannula 04/21 0007 95 Nasal 60% Cannula 04/21 0000 95 Nasal 60% Cannula 04/21 0000 98.0 94 17 142/88 95 Nasal 60% Cannula 04/20 2049 95 Nasal 70% Cannula 04/20 2000 97 Nasal 80% Cannula 04/20 1721 94 Nasal 80% Cannula 04/20 1600 94 Nasal 80% Cannula 04/20 1600 98.7 86 18 114/70 97 Nasal 80% Cannula 04/20 1423 Nasal 80% Cannula 04/20 1200 96 Nasal 80% Cannula Intake & Output 04/21 1600 /18 0800 07/18 0000 0717 1600 0717 0800 0717 0000 Intake Total 1199 1680 1999 2437.6 2000 Output Total 650 750 230 660 4727 Balance 538 319 3120 1827.6 800 Intake, IV 979 1260 1999 2437.6 2000 Intake, Oral 220 420 Number 0 0 1 Bowel Movements Output, Urine 650 750 744 492 2438 Patient 215 lb Weight Physical Exam General Appearance: well developed/nourished, no apparent distress Head: atraumatic Eyes: Bilateral: normal appearance. Respiratory: normal breath sounds Cardiovascular: irregularly irregular Back: no vertebral tenderness Extremities: normal inspection Reproductive: Normal male genitalia Last 24 Hours of Labs: Laboratory Tests 04/21 04/21 04/20 0510 8258 1252 Blood Gas pH (7.35 - 7.45 PH) 7.38 pCO2 (35 - 45 TORR) 45 pO2 (80 - 100 TORR) 83 HCO3 (21 - 28 MEQ/L) 26 ABG O2 Sat (Measured) (>96.0 %) 96.0 P-50 (Temp Corrected) N Carboxyhemoglobin (1.5 - 5.0 %) 0.3 L O2 Concentration % 60% Temperature (97.0 - 100.0 FARH) 98.6 O2 Delivery Method N/C Chemistry Sodium (137 - 145 mmol/L) 138 Potassium (3.5 - 5.1 mmol/L) 4.3 Chloride (98 - 107 mmol/L) 106 Carbon Dioxide (22 - 30 mmol/L) 24 Anion Gap (5 - 16) 7 BUN (9 - 20 mg/dL) 26 H Creatinine (0.7 - 1.2 mg/dL) 0.8 Estimated GFR (>60 ml/min) > 60 Glucose (65 - 99 mg/dL) 106 H Lactic Acid (0.7 - 2.1 mmol/L) 2.0 Calcium (8.4 - 10.2 mg/dL) 7.7 L Phosphorus (2.5 - 4.5 mg/dL) 1.7 L Magnesium (1.6 - 2.3 mg/dL) 2.0 Total Bilirubin (0.2 - 1.3 mg/dL) 0.7 AST (17 - 59 U/L) 224 H ALT (21 - 72 U/L) 237 H Albumin (3.5 - 5.0 g/dL) 2.8 L Coagulation PT (9.4 - 12.5 SEC) 37.8 H INR (0.90 - 1.17) 3.65 H Hematology CBC w Diff NO MAN DIFF REQ WBC (4.8 - 10.8 /CUMM) 6.8 RBC (4.70 - 6.10 /CUMM) 4.11 L Hgb (14.0 - 18.0 G/DL) 11.4 L Hct (42 - 52 %) 34.8 L MCV (80.0 - 94.0 FL) 84.5 MCH (27.0 - 31.0 PG) 27.8 RDW (11.5 - 14.5 %) 19.2 H Plt Count (130 - 400 /CUMM) 112 L MPV (7.4 - 10.4 FL) 9.4 Gran % (42.2 - 75.2 %) 80.3 H Lymphocytes % (20.5 - 51.1 %) 14.6 L Monocytes % (1.7 - 9.3 %) 4.2 Eosinophils % (0 - 5 %) 0.6 Basophils % (0.0 - 2.0 %) 0.3 Absolute Granulocytes (1.4 - 6.5 /CUMM) 5.5 Absolute Lymphocytes (1.2 - 3.4 /CUMM) 1.0 L Absolute Monocytes (0.10 - 0.60 /CUMM) 0.3 Absolute Eosinophils (0.0 - 0.7 /CUMM) 0 Absolute Basophils (0.0 - 0.2 /CUMM) 0 PUBS MCHC (33.0 - 37.0 G/DL) 32.9 L Miscellaneous Phlebotomy Draw Site RIGHT RADIAL 04/20 1252 Chemistry Sodium (137 - 145 mmol/L) 138 Potassium (3.5 - 5.1 mmol/L) 4.7 Chloride (98 - 107 mmol/L) 105 Carbon Dioxide (22 - 30 mmol/L) 25 Anion Gap (5 - 16) 8 BUN (9 - 20 mg/dL) 37 H Creatinine (0.7 - 1.2 mg/dL) 1.4 H Estimated GFR (>60 ml/min) 50 L BUN/Creatinine Ratio (7 - 25 %) 26.4 H Imaging Results: PATIENT: CARLOS TUCKER PRESENT AGE: 72 PATIENT ACCOUNT NO: [id number] : 47 LOCATION: [facility] ORDERING PHYSICIAN: HAILEE REAGAN MD SERVICE DATE: 04/20/17 EXAM TYPE: US - US-RENAL/KIDNEY EXAMINATION: US RETROPERITONEAL COMPLETE (RENAL) CLINICAL INFORMATION: Acute kidney insufficiency. Evaluate for renal pathology. COMPARISON: CT scan of the abdomen and pelvis dated 04/19/2017. Renal ultrasound dated 02/16/2015. TECHNIQUE: Real-time imaging of the kidneys and bladder. FINDINGS: RIGHT KIDNEY: 11.3 x 5.2 x 4.4 cm (SAG x AP x TRV). The kidney is normal in size, contour, and echogenicity. Renal cortical thickness is normal. No calculi or focal parenchymal lesions. No hydronephrosis. LEFT KIDNEY: 12.2 x 6.6 x 5.0 cm (SAG x AP x TRV). The kidney is normal in size, contour, and echogenicity. Renal cortical thickness is normal. No calculi or focal parenchymal lesions. No hydronephrosis. BLADDER: Decompressed by Martins catheter and not adequately assessed. IMPRESSION: 1. Bilaterally, kidneys are normal. No hydronephrosis seen. 2. Bladder decompressed by Martins catheter and not evaluated. Assessment/Plan Assessment/Plan Pt with ARF likely due to dehydration: voiding well. Plan per medicine-no acute intervention at this time. Copies To: DUANE KELSEY MD Consult Acknowledgment - Thank you for your consult request. Attending Review Statement Attending Statement Attending MD Statement: examined this patient, discuss w/resident/PA/MARKET PRESIDENT Attending Assessment/Plan: pt with mild right hydro on CT. Creatinine improved with hydration. Plan:no intervention at this time.
--- NOTE | 2017-04-21 09:50 | PN- Pulmonary ---
Subjective HPI/Critical Care Issues: Sleeping On 55 percent No new sig issues Objective Current Medications: Current Medications Sig/Latosha Start time Last Medication Dose Route Stop Time Status Admin Albuterol Sulfate 3 ML EVERY 4 HRS/AWAKE 04/20 1600 04/21 INH 0810 Ampicillin Sodium/ 1,500 MG Q12H 04/20 1030 04/20 Sulbactam Sodium IV 2109 Sodium Chloride 100 ML Citalopram 20 MG DAILY 04/20 1000 04/20 Hydrobromide PO 1711 Famotidine 20 MG DAILY 04/20 1000 04/20 IV 0907 Naloxone HCl 4 MG Q10H 04/20 1900 DC Dextrose/Water 1,000 ML IV Naloxone HCl 4 MG Q10H 04/20 1000 04/20 Dextrose/Water 1,000 ML IV 2109 Naloxone HCl 4 MG Q24H 04/19 2300 DC 04/20 Dextrose/Water 1,000 ML IV 1017 Ondansetron HCl 4 MG Q6P PRN 04/21 0200 04/21 IV 0803 Sodium Chloride 1,000 ML Q6H 04/19 2315 DC 04/21 IV 04/21 0514 0803 Vital Signs & I&O Last 24 Hrs of Vitals and I&O: Vital Signs Date Time Temp Pulse Resp B/P B/P Pulse O2 O2 Flow FiO2 Mean Ox Delivery Rate 04/21 0829 94 Nasal 55% Cannula 04/21 0800 95 Nasal 60% Cannula 04/21 0800 98.7 94 12 120/64 95 Nasal 60% Cannula 04/21 0400 95 Nasal 60% Cannula 04/21 0007 95 Nasal 60% Cannula 04/21 0000 95 Nasal 60% Cannula 04/21 0000 98.0 94 17 142/88 95 Nasal 60% Cannula 04/20 2049 95 Nasal 70% Cannula 04/20 2000 97 Nasal 80% Cannula 04/20 1721 94 Nasal 80% Cannula 04/20 1600 94 Nasal 80% Cannula 04/20 1600 98.7 86 18 114/70 97 Nasal 80% Cannula 04/20 1423 Nasal 80% Cannula 04/20 1200 96 Nasal 80% Cannula Intake & Output 04/21 1600 18 0800 04/21 0000 Intake Total 1199 1680 Output Total 650 750 Balance 549 930 Intake, IV 979 1260 Intake, Oral 220 420 Number 0 0 Bowel Movements Output, Urine 650 750 Impression/Plan Impression/Plan Impression/Plan: General Appearancesleeping Skin No Rashes, No Breakdown Skin Temp/Moisture Exam: Warm/Dry Neck Supple, No JVD Cardiovascular Normal S1, Normal S2, No Murmurs (irregular rhythm) Lungs rhonchi b/l bases, diminshed air entry Abdomen Normal Bowel Sounds, Soft, No Tenderness, No Masses Neurological patient moving all extremities, responsive, no slurred speech, unable to perform neuro exam because of mental status Extremities No Edema, Normal Pulses, No Tenderness/Swelling Vascular Normal Pulses, Pulses Symmetrical IMPRESSION 72 year old male with past medical history significant for HCV, atrial fibrillation and pulmonary embolism on warfarin, polysubstance abuse with multiple overdose admissions presents for presumed opioid overdose, acute hypoxic respiratory failure, acute renal failure, hyperkalemia and lactic acidosis. ISSUES Resolved AMS - due to polysub OD Resolved ARF Resolved AG acidosis mainley related to low flow state Elevated troponin /Altered lft with Chronic hep c Mild hydronephrosis without obstructive physiology ultrasound neg so far Resolving Resp failure due to decresed resp drive and aspiration pna with a component of acute lung injury from the drugs Myopathy from Polysub abuse PAfib on warfarin Hep c infection PRevius history of VTE ETOH abuse and depression Hiatal hernia with high aspiration risk REC Cont current meds ABx change to po augmentin in am CXR today Ultrasound lower ext Watch inr Reduce fio2 Urology eval Echo and cardio to see IV lasix one dose today Psych eval please
--- NOTE | 2017-04-21 10:11 | PN- Cardiology ---
Subjective Subjective: Awake and alert, but somnolent. Denies any chest discomfort, palpitations, shortness of breath, etc. Hemodynamically stable. Objective Vital Signs and I&Os Vital Signs Date Time Temp Pulse Resp B/P B/P Pulse O2 O2 Flow FiO2 Mean Ox Delivery Rate 04/21 0829 94 Nasal 55% Cannula 04/21 0800 95 Nasal 60% Cannula 04/21 0800 98.7 94 12 120/64 95 Nasal 60% Cannula 04/21 0400 95 Nasal 60% Cannula 04/21 0007 95 Nasal 60% Cannula 04/21 0000 95 Nasal 60% Cannula 04/21 0000 98.0 94 17 142/88 95 Nasal 60% Cannula 04/20 2049 95 Nasal 70% Cannula 04/20 2000 97 Nasal 80% Cannula 04/20 1721 94 Nasal 80% Cannula 04/20 1600 94 Nasal 80% Cannula 04/20 1600 98.7 86 18 114/70 97 Nasal 80% Cannula 04/20 1423 Nasal 80% Cannula 04/20 1200 96 Nasal 80% Cannula Intake & Output 04/21 1600 04/21 0800 04/21 0000 04/20 1600 04/20 0800 04/20 0000 Intake Total 1199 1680 2000 2437.6 2000 Output Total 650 750 515 439 4652 Balance 459 605 9123 1827.6 800 Intake, IV 979 1260 2000 2437.6 2000 Intake, Oral 220 420 Number 0 0 1 Bowel Movements Output, Urine 650 750 095 949 6425 Patient 215 lb Weight Physical Exam: Well-developed, overweight lady male with oxygen place in no acute distress. Vital signs: See above. Lungs: Clear to auscultation bilaterally. Heart: S1, S2 with no murmur, gallop, or rub appreciated. Abdomen: Soft, nontender, positive bowel sounds. Extremities: No edema. Current Medications: Current Medications Sig/Latosha Start time Last Medication Dose Route Stop Time Status Admin Albuterol Sulfate 3 ML EVERY 4 HRS/AWAKE 04/20 1600 AC 04/21 INH 0810 Ampicillin Sodium/ 1,500 MG Q12H 04/20 1030 AC 04/21 Sulbactam Sodium IV 0950 Sodium Chloride 100 ML Citalopram 20 MG DAILY 04/20 1000 AC 04/21 Hydrobromide PO 0950 Famotidine 20 MG DAILY 04/20 1000 AC 04/21 IV 0951 Naloxone HCl 4 MG Q10H 04/20 1900 DC Dextrose/Water 1,000 ML IV Naloxone HCl 4 MG Q10H 04/20 1000 AC 04/21 Dextrose/Water 1,000 ML IV 0950 Naloxone HCl 4 MG Q24H 04/19 2300 DC 04/20 Dextrose/Water 1,000 ML IV 1017 Ondansetron HCl 4 MG Q6P PRN 04/21 0200 AC 04/21 IV 0803 Sodium Chloride 1,000 ML Q6H 04/19 2315 DC 04/21 IV 04/21 0514 0803 Results Last 48 Hrs of Labs/Mics: Laboratory Tests 04/21/17 0510: pH 7.38, pCO2 45, pO2 83, HCO3 26, ABG O2 Sat (Measured) 96.0, P-50 (Temp Corrected) N, Carboxyhemoglobin 0.3 L, O2 Concentration % 60%, Temperature 98.6 , O2 Delivery Method N/C, Phlebotomy Draw Site RIGHT RADIAL 04/21/17 0358: Anion Gap 7, Estimated GFR > 60, Glucose 106 H, Calcium 7.7 L, Phosphorus 1.7 L, Magnesium 2.0, Total Bilirubin 0.7, AST 224 H, ALT 237 H, Albumin 2.8 L, PT 37.8 H, INR 3.65 H, CBC w Diff NO MAN DIFF REQ, RBC 4.11 L, MCV 84.5, MCH 27.8, RDW 19.2 H, MPV 9.4, Gran % 80.3 H, Lymphocytes % 14.6 L, Monocytes % 4.2, Eosinophils % 0.6, Basophils % 0.3, Absolute Granulocytes 5.5, Absolute Lymphocytes 1.0 L, Absolute Monocytes 0.3, Absolute Eosinophils 0, Absolute Basophils 0, PUBS MCHC 32.9 L 04/20/17 1252: Lactic Acid 2.0 04/20/17 1252: Anion Gap 8, Estimated GFR 50 L, BUN/Creatinine Ratio 26.4 H 04/20/17 0900: Anion Gap 10, Estimated GFR 33 L, Glucose 137 H, Lactic Acid 2.7 H, Calcium 7.6 L, Phosphorus 4.6 H, Magnesium 1.9, Total Bilirubin 0.5, AST 251 H, ALT 205 H, Creatine Kinase 1533 H, Troponin I 0.36 *H, Albumin 3.1 L 04/20/17 0615: pH 7.22 *L, pCO2 54 H, pO2 80, HCO3 22, ABG O2 Sat (Measured) 95.0 L, P-50 ( Temp Corrected) N, Carboxyhemoglobin 0.6 L, O2 Concentration % 100, O2 Delivery Method NRB, Phlebotomy Draw Site RIGHT RADIAL 04/20/17 045: Lactic Acid 2.3 H 04/20/17 0450: Anion Gap 10, Estimated GFR 25 L, Glucose 147 H, Calcium 7.5 L, Phosphorus 5.3 H, Magnesium 1.8, Total Bilirubin 0.5, AST 283 H, ALT 212 H, Creatine Kinase 1532 H, Albumin 3.3 L, PT 37.1 H, INR 3.58 H, CBC w Diff MAN DIFF ORDERED, RBC 4.74, MCV 85.6, MCH 27.6, RDW 18.8 H, MPV 9.2, Gran % 83.4 H, Lymphocytes % 10.9 L, Monocytes % 5.6, Eosinophils % 0, Basophils % 0.1, Absolute Granulocytes 4.5, Segmented Neutrophils 47, Band Neutrophils 32 H, Absolute Lymphocytes 0.6 L, Lymphocytes 11 L, Monocytes 7, Absolute Monocytes 0.3, Absolute Eosinophils 0, Absolute Basophils 0, Metamyelocytes 2 H, Myelocytes 1 H, Platelet Estimate ADEQUATE, Polychromasia 1+, Poikilocytosis 1+ , Ovalocytes 1+, PUBS MCHC 32.2 L 04/20/17 0219: Lactic Acid Cancelled 04/20/17 0100: Anion Gap 13, Estimated GFR 19 L, Glucose 201 H, Lactic Acid 3.1 H, Calcium 7.7 L, Phosphorus 6.2 H, Magnesium 1.8, Total Bilirubin 0.4, AST 243 H, ALT 198 H, Troponin I 0.58 *H, Albumin 3.4 L 04/19/172154: Urinalysis MOD H, Urine Color YEL, Urine Clarity CLEAR, Urine pH 6.0, Ur Specific [place] 1.010, Urine Protein NEG, Urine Ketones NEG, Urine Nitrite NEG, Urine Bilirubin NEG, Urine Urobilinogen 0.2, Ur Leukocyte Esterase NEG, Ur Microscopic SEDIMENT EXAMINED, Urine RBC 1-3, Urine WBC 1-3 H, Ur Epithelial Cells FEW, Urine Hemoglobin SMALL H, Urine Glucose NEG 04/19/172154: Urine Opiates Screen > 4000.00 H, Methadone Screen 46, Barbiturate Screen < 60, Ur Phencyclidine Scrn < 6.00, Amphetamines Screen > 1450 H, U Benzodiazepines Scrn < 85, Urine Cocaine Screen < 50, Urine Cannabis Screen < 5.00, Urine Osmolality 194 L, Ur Random Creatinine 49.8, U Random Total Protein 24 H, Ur Random Sodium 19 L, Ur Random Potassium 14.9, Protein/Creatinin Ratio 0.4 H, Fraction Sodium Excret 1.1 H 04/19/172144: Anion Gap 18 H, Estimated GFR 15 L, BUN/Creatinine Ratio 8.5, Total Bilirubin 0.6, Direct Bilirubin 0.5 H, AST 158 H, ALT 137 H, Alkaline Phosphatase 62, Total Protein 7.3, Albumin 4.0, PT 28.4 H, INR 2.73 H, APTT 34, Ethylene Glycol NEGATIVE, Propylene Glycol 0, Methyl Alcohol, Quant NEGATIVE 04/19/172128: Lactic Acid 5.8 H 04/19/172038: Serum Osmolality Cancelled 04/19/17 1900: pH 7.21 *L, pCO2 28 L, pO2 70 L, HCO3 11 L, ABG O2 Sat (Measured) 92.0 L, Carboxyhemoglobin 0.9 L, O2 Concentration % 80%, O2 Delivery Method PRB(1 VALVE ONLY), Phlebotomy Draw Site RIGHT RADIAL 04/19/17 1855: Anion Gap 27 H, Estimated GFR 13 L, BUN/Creatinine Ratio 6.2 L, Glucose 108 H, Serum Osmolality 310 H, Lactic Acid 9.7 H, Calcium 8.5, Magnesium 2.4 H, Total Bilirubin 0.6, AST 93 H, ALT 60, Alkaline Phosphatase 75, Creatine Kinase 1404 H, Troponin I 1.00 *H, Total Protein 8.8 H, Albumin 4.9, Globulin 3.9, Albumin/Globulin Ratio 1.3, CBC w Diff MAN DIFF ORDERED, RBC 5.60, MCV 86.9, MCH 27.5, RDW 18.9 H, MPV 9.0, Gran % 88.2 H, Lymphocytes % 5.2 L, Monocytes % 6.3, Eosinophils % 0.1, Basophils % 0.2, Absolute Granulocytes 13.4 H, Segmented Neutrophils 74, Band Neutrophils 9 H, Absolute Lymphocytes 0.8 L, Lymphocytes 9 L, Monocytes 8, Absolute Monocytes 1.0 H, Absolute Eosinophils 0 , Absolute Basophils 0, Platelet Estimate ADEQUATE, Normochromic RBCs VERIFIED, Anisocytosis 1+, Macrocytic Cells FEW, PUBS MCHC 31.6 L, Salicylates < 1.0, Acetaminophen < 10.0 L, Serum Alcohol < 10.0 Microbiology 04/20 0000 UPPER RESP: Surveillance Culture - COMP METH RESIST STAPH AUREUS 04/20 0000 GI: Surveillance Culture - COMP 04/19 2155 URINE ROUT: Urine Culture - COMP Recent Imaging Studies: Echocardiogram (04/20/2017): Normal size left ventricle. Normal left ventricular wall thickness. Normal left ventricular ejection fraction visually estimated at >65%. Normal left ventricular diastolic filling pattern for age. Mildly increased resting left ventricular outflow tract velocity (1.6 m/s). Moderate right ventricular dilatation. Normal right atrial size. Mild left atrial dilatation. Trace tricuspid regurgitation. Mild pulmonary hypertension. Dilated inferior vena cava. Renal ultrasound (04/20/2017): Bilaterally, kidneys are normal. No hydronephrosis seen. Bladder decompressed by Martins catheter and not evaluated. Assessment/Plan Assessment/Plan 72-[id number]-o-[id number]-m w/ hx of depression, suicidal ideation, hep C, Peñaloza's esophagus, Peñaloza's ulcer, esophagitis, multilobar PNA, previous acute hypoxemic respiratory failure requiring intubation, previous Staph aureus bacteremia, previous AF, previous PE on warfarin and Etoh abuse/withdrawal and polysubstance abuse w/ previous hospitalizations for OD who presented to the ED on 2016 w/ AMS secondary to opioid abuse/OD that has improved with naloxone w/ initial acute hypoxic respiratory failure, CUATE, hyperkalemia, & lactic acidosis w/ a Troponin I elevation w/o acute ECG changes to suggest ischemia/injury. Suspect opiod induced hypotension and decreased by mouth intake were responsible for the CUATE, increased transaminases etc. His initial electrocardiogram revealed peaked T waves c/w with hyperkalemia secondary to CUATE that resolved with standard therapy. His troponin I was found to be modestly elevated and is trending downward, likely secondary to demand ischemia (tachycardia, critical illness, etc.), CUATE, etc., and not an acute coronary syndrome. Overall, he has improved dramatically with volume resuscitation, naloxone, antimicrobial therapy, etc. Renal function dramatically improved. AST modestly improved, but ALT up slightly w/ background of hepatitis C. Recommendations: * Continue to manage in ICU w/ naloxone drip as per critical care team. * Antimicrobial management as per pulmonary medicine. * Fortunately, preserved left ventricular function was observed on echocardiography so volume should be well tolerated, especially w/ LVH, increased LVOT velocity, etc. * INR remains supratherapeutic and continue to follow-up. * DVT prophylaxis. Continue telemetry? Not applicable (In ICU)
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
--- NOTE | 2017-04-21 11:38 | PN- Resident CRCU ---
Subjective HPI/CRCU Issues: Mr. Vargas was admitted to the ICU yesterday night after a heroin overdose requiring a narcan drip. He remains on the drip and is AAO x2 (person and place ). Again, like yesterday, he appears to be lethargic at the time of interview and goes in and out of consciousness at times appearing to fall asleep. He is knows he is at [facility], but is unsure of the date and why is in the ICU. He denies any acute distress including chest pain, dyspnea, palpitations, abdominal pain. Nare surveilance returned positive for MRSA. All other cultures are not growing anything so far. Leukocytosis resolved as well as lactic acidosis. Troponin trended down. Blood gas this morning shows remarkable improvement [7.38/45/83/ 26] on 60% HFNC. INR still supratherapeutic at 3.65 Cardiac events overnight: 5 beat SVT with stable remaining vitals. Objective Vital Signs & I&O Last 8 Hrs of Vitals and I&O: Vital Signs Date Time Temp Pulse Resp B/P B/P Pulse O2 O2 Flow FiO2 Mean Ox Delivery Rate 04/21 0829 94 Nasal 55% Cannula 18 0800 95 Nasal 60% Cannula /18 0800 98.7 94 12 120/64 95 Nasal 60% Cannula 07/18 0400 95 Nasal 60% Cannula 07/18 0007 95 Nasal 60% Cannula 07/18 0000 95 Nasal 60% Cannula 07/18 0000 98.0 94 17 142/88 95 Nasal 60% Cannula /17 2049 95 Nasal 70% Cannula 17 2000 97 Nasal 80% Cannula 07/17 1721 94 Nasal 80% Cannula 07/17 1600 94 Nasal 80% Cannula 07/17 1600 98.7 86 18 114/70 97 Nasal 80% Cannula 07/17 1423 Nasal 80% Cannula 07/17 1200 96 Nasal 80% Cannula Exam General Appearance: well developed/nourished, no apparent distress, awake, lethargic, HEENT: atraumatic/normal head. Pinpoint pupils still, 2mm BL and reactive Neck: normal inspection (no jvd) Respiratory: BL rhonchi diffuse, worse in the bases, apical BL exp wheezes Cardiovascular: regular rate/rhythm Gastrointestinal: normal bowel sounds, soft, non-tender, distended, not rigid or tender Extremities: normal inspection, no edema Skin Temp/Moisture Exam: Warm/ Dry Current Medications: Current Medications Sig/Latosha Start time Last Medication Dose Route Stop Time Status Admin Albuterol Sulfate 3 ML EVERY 4 HRS/AWAKE 04/20 1600 AC 04/21 INH 1149 Amoxicillin/ 875 MG Q12 04/22 1000 UNVr Clavulanate Potassium PO Ampicillin Sodium/ 1,500 MG Q12H 04/20 1030 r 04/21 Sulbactam Sodium IV 04/22 0000 0950 Sodium Chloride 100 ML Citalopram 20 MG DAILY 04/20 1000 AC 04/21 Hydrobromide PO 0950 Famotidine 20 MG DAILY 04/20 1000 AC 04/21 IV 0951 Naloxone HCl 4 MG Q10H 04/20 1900 DC Dextrose/Water 1,000 ML IV Naloxone HCl 4 MG Q10H 04/20 1000 AC 04/21 Dextrose/Water 1,000 ML IV 0950 Naloxone HCl 4 MG Q24H 04/19 2300 DC 04/20 Dextrose/Water 1,000 ML IV 1017 Ondansetron HCl 4 MG Q6P PRN 04/21 0200 AC 04/21 IV 0803 Sodium Chloride 1,000 ML Q6H 04/19 2315 DC 04/21 IV 04/21 0514 0803 Impression/Plan Impression/Problem List Impression: Mr. Vargas is a 72-year-old gentleman with significant past medical history of atrial fibrillation on Coumadin for anticoagulation, previous pulmonary embolism in February 2015, untreated hepatitis C, depression with previous suicidal ideation, alcohol abuse, polysubstance abuse including heroine use regularly, previous MSSA sepsis and Escherichia coli pneumonia, scrotal cellulitis [no evidence of fourniers gangrene], perianal candidiasis who presented to the [facility] emergency department after being found unresponsive secondary to an heroine overdose. He responded to Narcan in the emergency department and is currently requiring a Narcan drip. Problem List/Assessment and Plan Respiratory: * Saturating in the mid 90s on 55% O2 via HFNC. * ABG showed resolution of resp acidosis with incomplete resp alkaosis. * Slowly improving, continue with goal sat of >88% of PaO2 >55 I/D: * BL aspiration PNA * On day 3 of Unasyn 1.5q12 * Leukocytosis resolved, with no fevers in the last 48h * Plan to transition to augmentin 875 BID tomorrow. Cardiovascular: * trop trended down x2 * Echocardiogram performed and appreciated. EKG showed borderline sinus tachycardia without any ST T changes. * hyperkalemia resolved with no more peaked T waves results. * Cardio consult with Dr. Hung appreciated. No significant patholgy on echocardiogram. * Afib on coumadin, with again a supratherapeutic INR 3.65, we will hold coumadin today and recheck INR in am Hematology/oncology: * stable H/H with leukocytosis resolved. * Given his rhonchi, radiographic findings and risk of aspiration after being down, we will continue unasyn for presumed aspiration PNA, 1.5g q12h with plan to transition to augmentin 875 BID tomorrow. Metabolic: * CUATE resolved. * Most likely 2/2 combination pre-renal due to dehydration. * Nephro and uro consults appreciated. * Renal US showed no hydronephrosis Alimentary: * NPO for now as he is still lethargic and may aspirate further Neurology: * Lethargic * Remains on Narcan drip for heroin OD * Plan to titrate off, when hes more awake DVT prophylaxis: * coumadin with supratherapeutic INR, ALPS for dvt ppx Problem List: 1. Lactic acidosis 2. Acute renal failure 3. Hyperkalemia Pain Ratin Tomorrow's Labs & Rationales: cbc/icu/?abg Plan DVT/Prophylaxis: mechanical
--- NOTE | 2017-04-21 11:52 | Event Note ---
Event Note Event Note: Patient not seen. Serum creatinine is normal. Will S/O, please reconsult if can be of further assistance.
--- NOTE | 2017-04-21 12:05 | ULTRASOUND REPORT ---
EXAMINATION: US TRIPLEX OF LOWER EXTREMITIES, BILATERAL CLINICAL INFORMATION: Supratherapeutic INR, elevated CPK/creatinine. Swelling versus possible DVT. COMPARISON: Lower extremity ultrasound 02/21/2015 TECHNIQUE: Color-flow triplex imaging with spectral analysis and compression Doppler were performed on the lower extremities. FINDINGS: Respiratory variation, normal compression and augmented flow are noted throughout the lower extremities. The visualized common femoral vein, superficial femoral vein, profunda femoral vein, popliteal vein and midcalf peroneal and posterior tibial venous segments show no evidence of deep venous thrombosis. There is no Webster's cyst. IMPRESSION: Normal triplex scan without evidence of deep venous thrombosis involving the lower extremities.
--- NOTE | 2017-04-21 12:07 | NUR ---
FAMILY MEETING HELD W DR RIVERA, DR LAYTON, DR CASAS AND THIS RN PRESENT. FAMILY HAS DECIDED TO TERMINALLY EXTUBATE PATIENT. FUEL ATTENDANT HAS BEEN NOTIFIED AND FAMILY HAS REQUESTED THAT THEIR PERSONAL FUEL ATTENDANT BE PRESENT IN ROOM AT TIME OF EXTUBATION. RESP THERAPIST NOTIFIED OF PT WISHES. FAMILY TAKING TIME FOR SPIRITUAL NEEDS W/ PATIENT AND WILL NOTIFY STAFF WHEN THEY ARE READY FOR EXTUBATION.
--- NOTE | 2017-04-21 13:40 | NUR ---
PT HAD PERIOD OF AGITATION/RESTLESSNESS, DISCONNECTING HIMSELF FROM THE MONITOR, PULLING OUT BOTH IV'S AND ATTEMPTING TO GET OUT OF BED. BED ALARM WAS ON AND PATIENT SAFETY MAINTAINED. PT REORIENTED, 2 PIV'S RE-ESTABLISHED. PT DENIED NEEDING ANYTHING, STATING HE DIDNT KNOW WHAT HE WAS DOING AND WAS APOLOGETIC. WILL CONTINUE TO MONITOR CLOSELY.
--- NOTE | 2017-04-21 14:24 | RADIOLOGY REPORT ---
EXAMINATION: XR PORTABLE CHEST CLINICAL INFORMATION: Questionable aspiration pneumonitis. Persistent hypoxia. COMPARISON: Several prior chest x-rays, most recent of which is dated 04/19/2017. CT scan of the chest dated 04/19/2017. TECHNIQUE: Portable AP semierect view of the chest was obtained. FINDINGS: The cardiomediastinal silhouette is within normal limits in size. Low lung volumes are seen. Minimal bibasilar linear opacities are seen, consistent with subsegmental atelectasis. There are also subtle right upper lobe and left midlung reticular opacities seen, corresponding to areas of dependent atelectasis on recent CT scan. No effusion or pneumothorax is seen. Bony structures are unremarkable. IMPRESSION: Multifocal scattered areas of atelectasis. No evolving focal pneumonia.
--- NOTE | 2017-04-21 14:51 | NUR ---
@1430-THIS RN TOOK OVER CARE OF PT AT THIS TIME. MEDICATED WITH LASIX 40MG X 1 ORD. PT NOTED TO HAVE BEEN ADMINISTERED 2MG OF ATIVAN BY PREV RN DUE TO INCREASED AGITATION, RESTLESS AND ELEVATED CIWA SCORE. AT THIS TIME, PT DROWSY, OPENS EYES TO VERBAL STIM BUT NOT FOLLOWING COMMANDS AND EASILY FALLS BACK ASLEEP. NARCAN GTT CONT AT 0.20MG/HR. UPON ASSESSMENT, PUPILS NOTED TO BE UNEQUAL WITH R EYE MEASURING 2MM AND L EYE MEASURING 3MM-BOTH REACTIVE BUT SLUGGISH-REPORTED TO HOUSESTAFD DR LAYTON. NSR HR 90S. BP STABLE. LUNGS DIM TO BASES. ABD DISTENDED BUT SOFT WITH +BS. IVF CONT TO INFUSE AT 75ML/HR. NO EDEMA NOTED WITH + PULSES. CONT TO MONITOR, CALL MARC WITHIN REACH.
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
[2017-04-21 16:00] VITALS: BP 92/54
[2017-04-21 18:00] VITALS: BP 114/70
[2017-04-21 20:00] VITALS: BP 124/74
[2017-04-21 22:00] VITALS: BP 136/81
[2017-04-22] VITALS (11 sets, daily range): BP systolic 100–168; BP diastolic 65–96
[2017-04-22 06:07] LABS: ABSOLUTE BASOPHIL COUNT 0 /CUMM (0.0-0.2); ABSOLUTE EOSINOPHIL COUNT 0 /CUMM (0.0-0.7); ABSOLUTE GRANULOCYTE CT 8.3 /CUMM (1.4-6.5); ABSOLUTE LYMPH COUNT 0.9 /CUMM (1.2-3.4); ABSOLUTE MONOCYTE COUNT 0.5 /CUMM (0.10-0.60); BASOPHIL % 0.2 % (0.0-2.0); EOSINOPHIL % 0.1 % (0-5); HEMATOCRIT 36.4 % (42-52); MEAN CORPUSCULAR HGB 27.9 PG (27.0-31.0); MEAN CORPUSCULAR HGB CONC 32.8 G/DL (33.0-37.0); MEAN CORPUSCULAR VOLUME 84.9 FL (80.0-94.0); MEAN PLATELET VOLUME 8.6 FL (7.4-10.4); PLATELET COUNT 124 /CUMM (130-400); RBC DISTRIBUTION WIDTH 18.1 % (11.5-14.5); RED BLOOD CELL CT 4.29 /CUMM (4.70-6.10); WHITE BLOOD CELL COUNT 9.6 /CUMM (4.8-10.8)
--- NOTE | 2017-04-22 07:27 | PN- Resident CRCU ---
TYRELL LAYTON 04/22/17 0727: Subjective HPI/CRCU Issues: Overnight events inclueded a low grade fever at 8pm, 100.0. Remaing vitals stable. Overnight around 130, he had a 2 short runs of SVT, <5 beats. He remains on the narcan drip but is more awake and alert today. He complains of some abdominal discomfort, and states he doesnt want to eat. He states his pain is diffuse in all quadrants. He was dosed with lasix yesterday, and diuresed around 1999 via his cooney. Labs reviewed today, LFTs up. Meds reviewed, no reason for acute pharmacological jump in his LFTs. Objective Vital Signs & I&O Last 8 Hrs of Vitals and I&O: Vital Signs Date Time Temp Pulse Resp B/P B/P Pulse O2 O2 Flow FiO2 Mean Ox Delivery Rate 04/22 0807 95 Nasal 4.0L Cannula 04/22 0600 83 16 100/65 04/22 0400 99.6 98 18 134/78 04/22 0400 93 Nasal 4.0L Cannula 04/22 0200 98 18 119/74 04/22 0000 99.2 92 16 134/70 04/22 0000 94 Nasal 4.0L Cannula 04/22 0000 99.2 92 16 134/70 94 Nasal 4.0L Cannula 04/21 2200 106 16 136/81 04/21 2000 100.0 94 16 124/74 04/21 2000 96 Nasal 4.0L Cannula 04/21 1800 88 16 114/70 04/21 1621 94 Nasal 5.0L Cannula 04/21 1600 99.6 92 16 92/54 04/21 1600 95 Nasal 5.0L Cannula 04/21 1401 93 Nasal 5.0L Cannula 04/21 1200 97 Nasal 4.0L Cannula Exam General Appearance: well developed/nourished, alert, awake, mild distress, HEENT : atraumatic/normal head. Pinpoint pupils still, 2mm on the left and 3mm on the right. BL reactive Neck: normal inspection (no jvd) Respiratory: BL rhonchi still presents, but wheezes improved. Cardiovascular: regular rate/rhythm Gastrointestinal: distended, tender to palpation diffusely, worse in the RUQ Extremities: normal inspection, no edema Skin Temp/Moisture Current Medications: Current Medications Sig/Latosha Start time Last Medication Dose Route Stop Time Status Admin Albuterol Sulfate 3 ML EVERY 4 HRS/AWAKE 04/20 1600 AC 04/22 INH 0805 Amoxicillin/ 875 MG Q12 04/22 1000 AC Clavulanate Potassium PO Ampicillin Sodium/ 1,500 MG Q12H 04/20 1030 DC 04/21 Sulbactam Sodium IV 04/22 0000 2200 Sodium Chloride 100 ML Citalopram 30 MG DAILY 04/22 1000 AC Hydrobromide PO Citalopram 20 MG DAILY 04/20 1000 DC 04/21 Hydrobromide PO 0950 Famotidine 20 MG DAILY 04/20 1000 AC 04/21 IV 0951 Folic Acid 1 MG DAILY 04/21 1301 AC 04/21 PO 1437 Furosemide 40 MG ONCE ONE 04/21 1415 DC 04/21 IV 04/21 1416 1437 Lorazepam 2 MG ONE ONE 04/21 1430 CAN IV 04/21 1431 Lorazepam 2 MG ONE ONE 04/21 1415 DC 04/21 IV 04/21 1416 1405 Lorazepam 0 Q1P PRN 04/21 1300 AC IV Multivitamins 1 TAB DAILY 04/21 1301 AC 04/21 PO 1437 Naloxone HCl 4 MG Q10H 04/20 1000 AC 04/22 Dextrose/Water 1,000 ML IV 0206 Ondansetron HCl 4 MG Q6P PRN 04/21 0200 AC 04/21 IV 0803 Thiamine HCl 100 MG DAILY 04/21 1301 AC 04/21 PO 1437 Impression/Plan Impression/Problem List Impression: Mr. Vargas is a 72-year-old gentleman with significant past medical history of atrial fibrillation on Coumadin for anticoagulation, previous pulmonary embolism in February 2015, untreated hepatitis C, depression with previous suicidal ideation, alcohol abuse, polysubstance abuse including heroine use regularly, previous MSSA sepsis and Escherichia coli pneumonia, scrotal cellulitis [no evidence of fourniers gangrene], perianal candidiasis who presented to the [facility] emergency department after being found unresponsive secondary to an heroine overdose. He responded to Narcan in the emergency department and is currently requiring a Narcan drip. Problem List/Assessment and Plan Respiratory: * Sats improving, now off of HFNC, on 4L of O2 via NC * ABG showed resolution of resp acidosis with incomplete resp alkaosis 04/21/17. * goal sat of >88% of PaO2 >55 I/D: * BL aspiration PNA * conpleted 3 days of Unasyn 1.5q12, start augmentin 875 BID today. * Leukocytosis resolved Cardiovascular: * trop trended down x2 * Echocardiogram performed and appreciated. EKG showed borderline sinus tachycardia without any ST T changes. * hyperkalemia resolved with no more peaked T waves results. * Cardio consult with Dr. Hung appreciated. No significant patholgy on echocardiogram. * Afib on coumadin, with INR this am 1.72, we will dose coumadin today his home dose of 7.5mg and recheck INR in am Hematology/oncology: * stable H/H with leukocytosis resolved. * Given his rhonchi, radiographic findings and risk of aspiration after being down, we will continue unasyn for presumed aspiration PNA, 1.5g q12h with plan to transition to augmentin 875 BID tomorrow. Metabolic: * New acute jump in LFTs. Given his abdominal pain, we will get a RUQ US to evaluate for hepatobiliary disesae * CUATE resolved. * Nephro and uro consults appreciated. * Renal US showed no hydronephrosis Alimentary: * regular diet Neurology: * Lethargic * Remains on Narcan drip for heroin OD - day 3. Usually, narcan is titrated off around day 3, and his mentation is improving, but his pupils are still pinpoint indicating he still had opiods in his system. We will continue for now as he is improving and reassess in the afternoon. * Plan to titrate off, when hes more awake DVT prophylaxis: * coumadin for dvt ppx Problem List: 1. Lactic acidosis 2. Acute renal failure 3. Hyperkalemia Pain Ratin Tomorrow's Labs & Rationales: cbc/icu/lft Plan DVT/Prophylaxis: suri DILL MD,[facility] 04/22/17 1302: Attending MD Review Statement Attending Sign Off Attending Cosign Statement: I have: examined this patient, reviewed [facility] EMR data, personally reviewd images, discussd w/resident/PA/NETWORK PROJECT MANAGER, discussed mgmt plan w/xiang, discussed mgmt plan w/CM, discussed mgmt plan w/pt, agreed w/resident/PA/NETWORK PROJECT MANAGER, amended to note. Other Findings: AGREE WITH ABOVE Complains of abd pain Better awake IMpression As above Plan Ultrasound of gb Check lfts GI to see if he gets worse IF worse will consider ct abd with ivc If stable to the floor Wean oxygen Will follow
--- NOTE | 2017-04-22 08:31 | NUR ---
SHIFT NOTE 11 PATIENT RECEIVED DROWSY BUT AROUSABLE TO NAME, ORIENTED TO SELF, PLACE, HOWEVER WHEN QUESTIONED TO YEAR OR MONTH ALSO REPSONDS THAT HE IS AT [facility], SKIN PINK, WARM AND DRY, MICA LAYER SINUS WITHOUT ECTOPY, HEART RATE 90'S/MIN, NARCAN DRIP INFUSING AT 0.2 MG/HR, MOVES ALL 4 EXTREMITIES WITH EQUAL STRENGTH, ABLE TO FOLLOW SIMPLE COMMANDS, PUPILS REMAIN UNEQUAL, NO LIMB DRIFT, O2 AT 4L/MIN VIA NC- CONTINUOUS O2 SAT 92 TO 94% ALTHOUGH PATIENT DOES DESAT QUICKLY TO 80'S WHEN HE REMOVES NC, ABDOMEN SOFT, +BS, WORLEY TO GRAVITY DRAINAGE WITH CLEAR YELLOW UO IN GOOD AMTS 0330 PATIENT FOUND TO BE HOLDING IV FROM LEFT FOREARM, DOES NOT RECALL REMOVING IT, #20 ABOCATH INSERTED RIGHT HAND WITHOUT DIFFICULTY 0630 NO CHANGES IN STATUS NOTED OVERNIGHT, PATIENT CONTINUES TO DENY ANY C/O PAIN, AWAITING AM MD ROUNDS
--- NOTE | 2017-04-22 13:06 | ULTRASOUND REPORT ---
EXAMINATION: US ABDOMEN LIMITED CLINICAL INFORMATION: Acutely elevated LFTs and total bilirubin. Evaluate for gallbladder disease. COMPARISON: Renal ultrasound dated 04/20/2017. CT scan of the abdomen and pelvis dated 04/19/2017. TECHNIQUE: Real-time imaging of the right upper quadrant abdominal viscera. FINDINGS: PANCREAS: The pancreatic body and head are unremarkable. Pancreatic tail is partially obscured by overlying bowel gas. LIVER: Normal. The liver demonstrates normal size, contour and echogenicity. No focal lesion or intrahepatic biliary duct dilatation. With color Doppler imaging, the main portal vein is found to be patent with normal hepatopedal flow demonstrated. GALLBLADDER: The gallbladder is physiologically distended without evidence of stones, sludge, polyps, or pericholecystic fluid. Diffuse gallbladder wall thickening is suggested, measuring between 0.4 and 0.6 cm. No sonographic Moore sign is seen. COMMON BILE DUCT: Normal in caliber measuring 0.5 cm in diameter. RIGHT KIDNEY: Normal. No hydronephrosis. No renal calculi or focal parenchymal lesions. The kidney measures 11.8 cm in maximum dimension. FREE FLUID: None. IMPRESSION: 1. Diffuse mild gallbladder wall thickening is seen. This is a nonspecific finding in the setting of acute hepatitis and may be secondary to the hepatitis. Clinical correlation requested to exclude chronic cholecystitis. 2. No gallstones or pericholecystic fluid. 3. Pancreatic tail obscured partially by overlying bowel gas.
[2017-04-23 08:01] VITALS: BP 120/68
[2017-04-23 08:05] LABS: ABSOLUTE BASOPHIL COUNT 0 /CUMM (0.0-0.2); ABSOLUTE EOSINOPHIL COUNT 0.1 /CUMM (0.0-0.7); ABSOLUTE GRANULOCYTE CT 7.4 /CUMM (1.4-6.5); ABSOLUTE LYMPH COUNT 1.1 /CUMM (1.2-3.4); ABSOLUTE MONOCYTE COUNT 0.8 /CUMM (0.10-0.60); BASOPHIL % 0.5 % (0.0-2.0); GRANULOCYTE % 78.6 % (42.2-75.2); HEMATOCRIT 37.7 % (42-52); MEAN CORPUSCULAR HGB 27.6 PG (27.0-31.0); MEAN CORPUSCULAR HGB CONC 32.8 G/DL (33.0-37.0); MEAN PLATELET VOLUME 8.9 FL (7.4-10.4); PLATELET COUNT 147 /CUMM (130-400); RBC DISTRIBUTION WIDTH 18.3 % (11.5-14.5); RED BLOOD CELL CT 4.49 /CUMM (4.70-6.10); WHITE BLOOD CELL COUNT 9.4 /CUMM (4.8-10.8)
[2017-04-23 08:40] LABS: PT 16.3 SEC (9.4-12.5)
--- NOTE | 2017-04-23 08:43 | PN- Housestaff ---
BHANU ADDISON 04/23/17 0843: Subjective Follow-up For: AMS Opiate overdose Acute hypoxic respiratory failure Subjective: Patient has no complaints. Feels fine and states he did something stupid. No acute events overnight Review of Systems Constitutional: Reports: see HPI. Objective Last 24 Hrs of Vital Signs/I&O Vital Signs Date Time Temp Pulse Resp B/P B/P Pulse O2 O2 Flow FiO2 Mean Ox Delivery Rate 04/23 1440 98.0 82 20 160/98 91 Room Air 04/23 0801 98.2 81 20 120/68 94 Nasal Cannula 04/23 0800 93 Nasal 3.0L Cannula 04/23 0000 Nasal 3.0L Cannula 04/22 2333 98.8 84 20 168/96 94 Nasal 3.0L Cannula 04/22 1800 80 18 130/80 04/22 1644 97 Nasal 4.0L Cannula 04/22 1600 97.2 84 18 150/90 04/22 1600 97.2 84 18 150/90 95 Nasal 4.0L Cannula 04/22 1600 95 Nasal 4.0L Cannula Intake & Output 04/23 1600 04/23 0800 04/23 0000 Intake Total 500 0 320 Output Total 1150 550 400 Balance -650 -550 -80 Intake, IV 0 Intake, Oral 500 0 320 Number 2 0 Bowel Movements Output, Urine 1150 550 400 Patient 242 lb Weight Weight Chair scale Measurement Method Physical Exam General Appearance: Alert, Oriented X3, Cooperative, No Acute Distress HEENT: Atraumatic, PERRLA, EOMI Neck: Supple, No JVD, No thryomegaly Cardiovascular: Regular Rate, Normal S1, Normal S2 Lungs: Clear to Auscultation, Normal Air Movement Abdomen: Normal Bowel Sounds, Soft, No Tenderness Extremities: No Cyanosis, No Tenderness/Swelling Current Medications: Current Medications Sig/Latosha Start time Last Medication Dose Route Stop Time Status Admin Albuterol Sulfate 3 ML EVERY 4 HRS/AWAKE 04/20 1600 AC 04/22 INH 2042 Amoxicillin/ 875 MG Q12 04/22 1000 AC 04/23 Clavulanate Potassium PO 0939 Citalopram 30 MG DAILY 04/22 1000 AC 04/23 Hydrobromide PO 0939 Famotidine 20 MG DAILY 04/20 1000 AC 04/23 IV 0939 Folic Acid 1 MG DAILY 04/21 1301 AC 04/23 PO 0939 Lorazepam 0 Q1P PRN 04/21 1300 AC 04/22 IV 1630 Multivitamins 1 TAB DAILY 04/21 1301 AC 04/23 PO 0939 Ondansetron HCl 4 MG Q6P PRN 04/21 0200 AC 04/21 IV 0803 Thiamine HCl 100 MG DAILY 04/21 1301 AC 04/23 PO 0939 Warfarin Sodium 7.5 MG COUMADIN 1700 ONE 04/22 1700 DC 04/22 PO 04/22 1701 1636 Last 24 Hrs of Lab/Sebastián Results Last 24 Hrs of Labs/Mics: Laboratory Tests 04/23/17 0642: Anion Gap 9, Estimated GFR > 60, Glucose 90, Calcium 8.2 L, Phosphorus 3.1, Magnesium 2.0, Total Bilirubin 1.3, AST 326 H, ALT 791 H, Albumin 3.0 L, PT 16.3 H, INR 1.56 H, CBC w Diff NO MAN DIFF REQ, RBC 4.49 L, MCV 84.0, MCH 27.6, RDW 18.3 H, MPV 8.9, Gran % 78.6 H, Lymphocytes % 11.3 L, Monocytes % 8.6, Eosinophils % 1.0, Basophils % 0.5, Absolute Granulocytes 7.4 H, Absolute Lymphocytes 1.1 L, Absolute Monocytes 0.8 H, Absolute Eosinophils 0.1, Absolute Basophils 0, PUBS MCHC 32.8 L Assessment/Plan Assessment: Mr. Vargas 72 yo male with PMH significant for HCV, atrial fibrillation and pulmonary embolism on warfarin, polysubstance abuse with multiple overdose admissions including one for methadone at [facility] was brought to the ED by the patient's son, González Cadena, for increasing somnolence and difficulty breathing over the last several hours. On arrival the patient was apneic and unresponsive. After Narcan IV 0.4mg administration his breathing improved and became more arousable and responsive. Patient currently transferred to . 1. AMS/Opiate overdose * Narcan drip weaned off 2. Acute hypoxic respiratory failure (ABG showed resp acidosis with incomplete resp alkaosis) * Currently not requiring any oxygen * Repeat ABG nl 3. Trop trending down to 0.58 from 1.00. * Echocardiogram performed and appreciated. EKG showed borderline sinus tachycardia without any ST T changes. Peak T waves results. Potassium down to 5.9, still slightly elevated s/p calcium gluconate this am and renetta-exylate. 4. Aspiration PNA * Continue Augmentin 5. Depression * Continue celexa * Psych consulted 6. Abdominal pain - now resolved * CT notable for L grade 1-2 hydrouretonephrosis without calculus * RUQ U/S notable for gall bladder thickening * GI consulted DVT prophylaxis-Coumadin Problem List: 1. Opioid abuse 2. Intoxication 3. Polysubstance abuse 4. Altered mental status 5. Acute respiratory failure with hypoxia 6. Depression 7. Chronic hepatitis C Pain Ratin Pain Location: N/A Pain Goal: Remain pain free Pain Plan: N/A Tomorrow's Labs & Rationales: CBC, PT/INR on Coumadin DANYA ESCALONA 04/23/17 1204: Attending MD Review Statement Attending Statement Attending MD Statement: examined this patient, discuss w/resident/PA/MEXICAN FOOD MAKER HAND, agreed w/resident/PA/MEXICAN FOOD MAKER HAND, discussed with family, reviewed EMR data (avail), discussed with nursing, discussed with case mgmt, reviewed images, amended to note Attending Assessment/Plan: 72-y-o-w-m w/ hx of depression, suicidal ideation, hep C, Peñaloza's esophagus, Peñaloza's ulcer, esophagitis, multilobar PNA, previous acute hypoxemic respiratory failure requiring intubation, previous Staph aureus bacteremia, previous AF, previous PE on warfarin and Etoh abuse/withdrawal and polysubstance abuse w/ previous hospitalizations for OD who presented to the ED on 2016 w/ AMS secondary to opioid abuse/OD that has improved with naloxone w/ initial acute hypoxic respiratory failure, CUATE, hyperkalemia, & lactic acidosis w/ a Troponin I elevation w/o acute ECG changes to suggest ischemia/injury. Patient transferred to floor gen/med service. Patient denies any new compliants. Vitals stable. No abdominal pain, no nausea, pysch signed off. LFTs trending down, f/u o/p Dr Helen MAYERS for Hep C. INR subtherapeutic resume home dose coumadin at d.c, f/u INR o/p with PCP. SW consulted. Obtain cardiology clearance at d/c. c/w oral abx for 7 days. Patient on room air and independent, can d/c home soon.
--- NOTE | 2017-04-23 10:36 | PN- Psychiatry ---
Assessment/Plan Impression: Identifying Info: 72-year-old but estranged male brought to [facility] emergency department by his son minimally responsive status post ingestion of opiates and amphetamines. Narcan was administered to good effect. Seen today on telemetry. SUBJECTIVE "I feel really stupid... it was a dumb thing to do." Patient reports that on his way back from [place] he had taken a time release "heroin pill," (asked patient to clarify and continued to state it was heroin) from his brother which led to his progressively worsening mental status on his return ride home. He voices a desire to abstain from opiates and is agreeable to talk to social work regarding disposition. He declines medications for cravings at this time. He would like to engage in AA/NA. Brief ROS Gait: Not observed Sleep: Adequate Appetite: Adequate OBJECTIVE Mental Status Exam Presentation/Appearance: Calm and pleasant. Cooperative with evaluation. Hospital garb. Orientation: x4 Sensorium: Awake and alert Eye contact: Appropriate Affect: Somewhat blunted but congruent with stated mood Mood: "Depressed I did this." Depression: Endorses Anxiety: Denies Thought Content: - Denies SI/HI, AH/VH, PI. States and also believes they will not kill themselves. - Denies Hopeless/Helpless Thoughts Thought Process: Linear Associations: Appropriate Speech: WNL Judgment: Intact Insight: Intact Cognition: Memory: Some recent deficits Attention/Concentration: Grossly intact Fund of Knowledge: Adequate Abstractions: Did not assess MMSE: Did not assess ASSESSMENT 72-year-old but estranged male with a known history of polysubstance abuse presents altered post opiate, alcohol, and methamphetamine ingestion. Mental staus greatly improved and patient appears to be back at his baseline. At present the patient does not represent a threat to himself due to self harm but is at high risk of relapse and overdose if he does not engage in appropriate aftercare. Diagnosis Delirium due to multiple etiologies, resolved Alcohol use disorder Opiate use disorder Sedative hypnotic use disorder Unspecified depressive disorder A total of 30 minutes was spent with the patient with more than 50% of the time spent in counseling and/or coordination of care. Suggestion: 1. Continue celexa as currently ordered. 2. Appreciate SW help with disposition planning. Patient is cleared from a psychiatric perspective we are signing off. Subjective Subjective: as above Objective Last 24 Hrs of Vital Signs/I&O Current Medications Sig/Latosha Start time Last Medication Dose Route Stop Time Status Admin Albuterol Sulfate 3 ML EVERY 4 HRS/AWAKE 04/20 1600 AC 04/22 INH 2042 Amoxicillin/ 875 MG Q12 04/22 1000 AC 04/23 Clavulanate Potassium PO 0939 Citalopram 30 MG DAILY 04/22 1000 AC 04/23 Hydrobromide PO 0939 Famotidine 20 MG DAILY 04/20 1000 AC 04/23 IV 0939 Folic Acid 1 MG DAILY 04/21 1301 AC 04/23 PO 0939 Lorazepam 0 Q1P PRN 04/21 1300 AC 04/22 IV 1630 Multivitamins 1 TAB DAILY 04/21 1301 AC 04/23 PO 0939 Naloxone HCl 4 MG Q10H 04/20 1000 DC 04/22 Dextrose/Water 1,000 ML IV 0206 Ondansetron HCl 4 MG Q6P PRN 04/21 0200 AC 04/21 IV 0803 Thiamine HCl 100 MG DAILY 04/21 1301 AC 04/23 PO 0939 Warfarin Sodium 7.5 MG COUMADIN 1700 ONE 04/22 1700 DC 04/22 PO 04/22 1701 1636 Laboratory Tests 04/23/17 0642: Anion Gap 9, Estimated GFR > 60, Glucose 90, Calcium 8.2 L, Phosphorus 3.1, Magnesium 2.0, Total Bilirubin 1.3, AST 326 H, ALT 791 H, Albumin 3.0 L, PT 16.3 H, INR 1.56 H, CBC w Diff NO MAN DIFF REQ, RBC 4.49 L, MCV 84.0, MCH 27.6, RDW 18.3 H, MPV 8.9, Gran % 78.6 H, Lymphocytes % 11.3 L, Monocytes % 8.6, Eosinophils % 1.0, Basophils % 0.5, Absolute Granulocytes 7.4 H, Absolute Lymphocytes 1.1 L, Absolute Monocytes 0.8 H, Absolute Eosinophils 0.1, Absolute Basophils 0, PUBS MCHC 32.8 L Vital Signs Date Time Temp Pulse Resp B/P B/P Pulse O2 O2 Flow FiO2 Mean Ox Delivery Rate 04/23 0801 98.2 81 20 120/68 94 Nasal Cannula 04/23 0800 93 Nasal 3.0L Cannula 04/23 0000 Nasal 3.0L Cannula 04/22 2333 98.8 84 20 168/96 94 Nasal 3.0L Cannula 04/22 1800 80 18 130/80 04/22 1644 97 Nasal 4.0L Cannula 04/22 1600 97.2 84 18 150/90 04/22 1600 97.2 84 18 150/90 95 Nasal 4.0L Cannula 04/22 1600 95 Nasal 4.0L Cannula 04/22 1400 80 18 151/91 04/22 1200 98.5 80 20 126/80 Intake & Output 04/23 1600 04/23 0800 04/23 0000 Intake Total 0 320 Output Total 550 400 Balance -550 -80 Intake, IV 0 Intake, Oral 0 320 Number 0 Bowel Movements Output, Urine 550 400 Patient 242 lb Weight Weight Chair scale Measurement Method
--- NOTE | 2017-04-23 11:19 | Patient Discharge Instructions ---
Discharge Instructions General Discharge Information You were seen/treated for: Altered mental status Opioid overdose Delirium Alcohol use disorder Opiate use disorder Sedative hypnotic use disorder Depressive disorder You had these procedures: None Special Instructions: Follow up with your channel manager within 1-2 weeks after discharge Follow up with the mobile development manager within 1-2 weeks after discharge Please follow-up with primary care doctor within 1-2 weeks after discharge follow up with your certified medical coder in 1-2 weeks after discharge. Diet Continue normal diet: Yes Activity Full Activity/No Limits: Yes Acute Coronary Syndrome Inclusion Criteria At DC or during hospital stay patient has or had the following: ACS DIAGNOSIS No Discharge Core Measures Meds if any: Prescribed or Continued at Discharge Meds if any: NOT Prescribed or Continued at Discharge Congestive Heart Failure Inclusion Criteria At DC or during hospital stay patient has or had the following: CHF DIAGNOSIS No Discharge Core Measures Meds if any: Prescribed or Continued at Discharge Meds if any: NOT Prescribed or Continued at Discharge Cerebrovascular accident Inclusion Criteria At DC or during hospital stay patient has or had the following: CVA/TIA Diagnosis No Discharge Core Measures Meds if any: Prescribed or Continued at Discharge Meds if any: NOT Prescribed or Continued at Discharge Venous thromboembolism Inclusion Criteria VTE Diagnosis No VTE Type NONE VTE Confirmed by (Test) NONE Discharge Core Measures - Per Current guidelines, there needs to be overlap - treatment for the first 5 days of Warfarin therapy. - If discharged on Warfarin prior to 5 days of - overlap therapy, the patient will need to be - assessed for post discharge needs including - *Post discharge parental anticoagulation - *Warfarin and/or parental anticoagulation education - *Follow up date to check INR post discharge At least 5 days overlap therapy as Inpatient No Meds if any: Prescribed or Continued at Discharge Note: Overlap Therapy is Warfarin and Anticoagulant Meds if any: NOT Prescribed or Continued at Discharge
[2017-04-23] MEDS ORDERED: AMOX-CLAV 875-1 EACH PO ×2 (11:31→13:29)
[2017-04-23] MEDS ORDERED: THIAMINE HCL100 M1 PO (13:29)
[2017-04-23] MEDS ORDERED: CITALOPRAM HBR10 MG PO (13:29)
[2017-04-23] MEDS ORDERED: FOLIC ACID1 M1 PO (13:29)
[2017-04-23 14:40] VITALS: BP 160/98
--- NOTE | 2017-04-23 15:02 | NUR ---
SW into see pt for after care planning. Pt awake, alert and oriented x 3 and in his bed. Able to move his bed to sitting to fully engage sw in conversation. Pt declines to sign releases for his brother, spouse, and adult son, reporting this was his business. Pt is informed that his brother has called seeking infor and referral information. Pt informed brother has not been given info on pt but has voiced concern and would like pt to go to a 30 day program. Sw and pt tried to call his but she generally isnot available at work. Pt reprots he will have his adult son pick him up. Son lives with pt. Pt is not interested in a 30 day program ( insurance does not cover most). PT was educated on IOP level of care and was given information in cluding phone numbers for [facility] and [facility]. Pt stated he was interested in NA/AA and sw gave pt a list of local NA meetings and explained the different kinds of meetings. Pt is a 72 yo M/W/M who comes to the hospital for an OD and denies it was intentional. Pt denies SI/HI/Ah/Vh at this time. Pt reports he had not partied in long time and went to his brother's where he had several beer and thought he should have a Morphone pill ( stated Morphine on pill) he found on his brother's dresser. Pt denies heroin but calls morphine pills, heroin pills Pt's brother has a war Vet who takes them regularly per pt. Pt reports he did not known pill would impact him like this. Pt reports he has taken percocets of the street in the past but not in 4-5 years. Pt reports he was seeking a high and did not think it through. Pt reports he rarely even drinks now " i really got away from it". Pt reports he really has been thinking of working on his wellness, with drinking water, going to the gym and eat veg. Pt decines need to go to tx other than AA/NA. Pt denies ever having tx before or going to AA/NA. Pt has set the goal to go to a meeting on Thursday evening. Pt reports he will have attended at least one meeting by the end of the weekend. Discussed triggers and urges including the summer weekend. deanna spoke with Satya Sánchez. Sw reported that sw had concluded visit with pt and he had been given resources.
--- NOTE | 2017-04-23 15:53 | NUR ---
PATIENT WAS SEEN BY FOOD CLERK PRIOR TO DISCHARGE. PATIENT REFUSED ALL DISCHARGE F/U WITH OUTPATIENT SERVICES AT THIS TIME.
--- NOTE | 2017-04-23 16:21 | PN- Cardiology ---
Subjective Subjective: No complaints. Objective Vital Signs and I&Os Vital Signs Date Time Temp Pulse Resp B/P B/P Pulse O2 O2 Flow FiO2 Mean Ox Delivery Rate 04/23 1440 98.0 82 20 160/98 91 Room Air 04/23 0801 98.2 81 20 120/68 94 Nasal Cannula 04/23 0800 93 Nasal 3.0L Cannula 04/23 0000 Nasal 3.0L Cannula 04/22 2333 98.8 84 20 168/96 94 Nasal 3.0L Cannula 04/22 1800 80 18 130/80 04/22 1644 97 Nasal 4.0L Cannula Intake & Output 04/23 1600 04/23 0800 04/23 0000 04/22 1600 04/22 0800 04/22 0000 Intake Total 500 0 320 685 517 990 Output Total 1150 023 569 5069 1175 3220 Balance -650 -550 -80 -740 -658 -2230 Intake, IV 0 285 517 990 Intake, Oral 500 0 320 400 0 Number 2 0 1 0 Bowel Movements Output, Urine 1150 235 300 6620 1175 3220 Patient 242 lb Weight Weight Chair scale Measurement Method Physical Exam: Well-developed, overweight elderly male in no acute distress. Vital signs: See above. Lungs: Clear to auscultation bilaterally. Heart: S1, S2 with no murmur, gallop, or rub appreciated. Abdomen: Soft, nontender, positive bowel sounds. Extremities: No edema. Assessment/Plan Assessment/Plan 72-y-o-w-m w/ hx of depression, suicidal ideation, hep C, Peñaloza's esophagus, Peñaloza's ulcer, esophagitis, multilobar PNA, previous acute hypoxemic respiratory failure requiring intubation, previous Staph aureus bacteremia, previous AF, previous PE on warfarin and Etoh abuse/withdrawal and polysubstance abuse w/ previous hospitalizations for OD who presented to the ED on 2016 w/ AMS secondary to opioid abuse/OD that has improved with naloxone w/ initial acute hypoxic respiratory failure, CUATE, hyperkalemia, & lactic acidosis w/ a Troponin I elevation w/o acute ECG changes to suggest ischemia/injury. Suspect opiod induced hypotension and decreased by mouth intake were responsible for the CUATE, increased transaminases etc. His initial electrocardiogram revealed peaked T waves c/w with hyperkalemia secondary to CUATE that resolved with standard therapy. His troponin I was found to be modestly elevated and is trending downward, likely secondary to demand ischemia (tachycardia, critical illness, etc.), CUATE, etc., and not an acute coronary syndrome. Overall, he improved dramatically with volume resuscitation, naloxone, antimicrobial therapy, etc. Renal function dramatically improved. Transaminases remain elevated w/ background of hepatitis C. Recommendations: * Ready for discharge from a cardiovascular standpoint. * Fortunately, preserved left ventricular function was observed on echocardiography along with an increased resting LVOT velocity which should be followed up on an outpatient basis. * DVT prophylaxis. Continue telemetry? No
--- NOTE | 2017-04-23 18:33 | PN- Pulmonary ---
Subjective HPI/Critical Care Issues: fidencio has no complaints. Feels fine and states he did something stupid. No acute events overnight Review of Systems Constitutional: Reports: see HPI. Objective Current Medications: Current Medications Sig/Latosha Start time Last Medication Dose Route Stop Time Status Admin Albuterol Sulfate 3 ML EVERY 4 HRS/AWAKE 04/20 1600 AC 04/22 INH 2042 Amoxicillin/ 875 MG Q12 04/22 1000 AC 04/23 Clavulanate Potassium PO 1754 Citalopram 30 MG DAILY 04/22 1000 AC 04/23 Hydrobromide PO 0939 Famotidine 20 MG DAILY 04/20 1000 AC 04/23 IV 0939 Folic Acid 1 MG DAILY 04/21 1301 AC 04/23 PO 0939 Lorazepam 0 Q1P PRN 04/21 1300 AC 04/22 IV 1630 Multivitamins 1 TAB DAILY 04/21 1301 AC 04/23 PO 0939 Ondansetron HCl 4 MG Q6P PRN 04/21 0200 AC 04/21 IV 0803 Thiamine HCl 100 MG DAILY 04/21 1301 AC 04/23 PO 0939 Warfarin Sodium 7.5 MG COUMADIN 1700 ONE 04/23 1715 DC 04/23 PO 04/23 1716 1751 Vital Signs & I&O Last 24 Hrs of Vitals and I&O: Vital Signs Date Time Temp Pulse Resp B/P B/P Pulse O2 O2 Flow FiO2 Mean Ox Delivery Rate 04/23 1440 98.0 82 20 160/98 91 Room Air 04/23 0801 98.2 81 20 120/68 94 Nasal Cannula 04/23 0800 93 Nasal 3.0L Cannula 04/23 0000 Nasal 3.0L Cannula 04/22 2333 98.8 84 20 168/96 94 Nasal 3.0L Cannula Intake & Output 04/23 1600 04/23 0800 04/23 0000 Intake Total 500 0 320 Output Total 1150 550 400 Balance -650 -550 -80 Intake, IV 0 Intake, Oral 500 0 320 Number 2 0 Bowel Movements Output, Urine 1150 550 400 Patient 242 lb Weight Weight Chair scale Measurement Method Impression/Plan Impression/Plan Impression/Plan: General Appearancesleeping Skin No Rashes, No Breakdown Skin Temp/Moisture Exam: Warm/Dry Neck Supple, No JVD Cardiovascular Normal S1, Normal S2, No Murmurs (irregular rhythm) Lungs rhonchi b/l bases, diminshed air entry Abdomen Normal Bowel Sounds, Soft, No Tenderness, No Masses Neurological patient moving all extremities, responsive, no slurred speech, unable to perform neuro exam because of mental status Extremities No Edema, Normal Pulses, No Tenderness/Swelling Vascular Normal Pulses, Pulses Symmetrical IMPRESSION 72 year old male with past medical history significant for HCV, atrial fibrillation and pulmonary embolism on warfarin, polysubstance abuse with multiple overdose admissions presents for presumed opioid overdose, acute hypoxic respiratory failure, acute renal failure, hyperkalemia and lactic acidosis. ISSUES Resolved AMS - due to polysub OD Resolved ARF Resolved AG acidosis mainley related to low flow state Elevated troponin /Altered lft with Chronic hep c Mild hydronephrosis without obstructive physiology ultrasound neg so far Resolving Resp failure due to decresed resp drive and aspiration pna with a component of acute lung injury from the drugs Myopathy from Polysub abuse PAfib on warfarin Hep c infection PRevius history of VTE ETOH abuse and depression Hiatal hernia with high aspiration risk REC Cont current meds Po augmentin watch lft will follow
--- NOTE | 2017-04-24 13:40 | Discharge Summary ---
Visit Information Visit Dates Admission Date: 04/19/17 Discharge Date: 04/23/17 Hospital Course Course Attending Physician: MALU PIERCE MD Primary Care Physician: ANDREA BURRIS,TOMMIE Other Care Providers: Dr. Paez-Site Supervising Technical Operator Dr. Hung-Shot Polisher And Inspector Dr. Ledesma-Stamp Redemption Clerk Hospital Course: Mr. Vargas 72 yo male with PMH significant for HCV, atrial fibrillation and pulmonary embolism on warfarin, polysubstance abuse with multiple overdose admissions including one for methadone at [facility] was brought to the ED by the patient's son, González Cadena, for increasing somnolence and difficulty breathing over the last several hours. On arrival the patient was apneic and unresponsive. After Narcan IV 0.4mg administration his breathing improved and became more arousable and responsive. ED Course- Pertininent labs: wbc 15.2, CR 4.5, Trop 1, K 7.9, LA 9.7, ABG 7.2//70/11, INR 2.73, ECG-peaked T waves, ALT 137, AST 158. Given Narcan x 2 doses, Narcan infusion, good response, Unasyn IV for lobar pneumonia. Calcium gluconate 1gram IV, 10 units regular insulin, 25g IV dextrose , Kayelexate for hyperkalemia, IVF. ICU Course - Mr. Vargas was admitted to the ICU after a heroin overdose requiring a narcan drip. He remained on the narcan drip for 3 days in the ICU. He was stable for the duration of his stay and did not require pressor or respiratory support. the drip and is AAO x2 (person and place). Initially, was was lethargic in spite of the narcan drip, but did slowly become more awake and alert. As he did improve, and maintained his airway, the narcan was d/c. Additionally, as he did have pulmonary infiltrates on CXR, had leukocytosis, and lactic acidosis, he was started on IV Unasyn for treatment of suspected aspiration pneumonia. Additionally, his troponin level initially was elevated, without EKG changes, but this was determined most likely 2/2 demand ischemia. Finally, he initially had acute kidney injury. Based on his BUN/Cr ratio and correction with fluids, this was determined to be most likely 2/2 prerenal causes, mostly dehydration. The patient was then moved from the ICU and placed in telemetry as a GM hold. No change in medical management required, patient improved back to baseline and was weaned off oxygen. He was followed by Dr. Paez-Site Supervising Technical Operator for hypoxic respiratory failure/aspiration PNA and eventually switched from unasyn IV to augmentin PO and Dr. Hung-Shot Polisher And Inspector for elevated trop 2/2 critcal illness- trendend down and hyperkalemia 2/2 CUATE-resolved. Patient was seen by Psych PACKER OPERATOR AUTOMATIC- Tarah for depression and anxiety, his Celexa was increased and was cleared from a psych perspective. He was seen by the Urologist-Dr. Montalvo for CT abd finding- Left grade 1-2 hydroureteronephrosis without a demonstrable obstructive ureteral calculus. US renal was negative and no intervention was required at this time. Upon discharge patient was advised to follow up with the glass blowing lathe operator, revenue agent, PCP and dip painter. His dose of Celexa was increased from 20mg to 30mg daily. He was given augmentin for Aspiration PNA, Folic acid, thiamine supplements and continued on his Omeprazole and Warfarin dose. Problem List: 1. Altered mental status/Opiate overdose -likely due to narcotic overdose, Utox + for amphetamine and opiates, serum alcohol, ethylene glycol, methyl alcohol negative. Patient clinically responded both respiratory and level of arousal to Narcan IV x 2 doses, pinpoint pupils assymetric R>L. Patient was started on a naloxone infusion. 2. Acute hypoxic respiratory failure -precipitated by opioid overdose, possibly heroin and prescription pain medications, patient responsive to naloxone and put on infusion. Patient was afebrile with leukocytosis and CT evidence of pneumonia. He was given supplemental oxygen via nonrebreather mask titrated to Spo2 >90%. CT Chest shows bilateral lower lobe pneumonia with patchy inferior right upper lobe airspace disease. He was given IV Unasyn for presumed aspiration pneumonia. 3. Acute renal failure -cooney placed, creatinine 4.5 at admission, likely prerenal versus intrarenal, BUN/Cr ratio was low at admission supporting intrarenal pathology. Renal US was neagtive for any acute pathology, CT abd reported Grade 1-2 hydroureteronephrosis without demonstrable obstructive ureteral calculus. 4. Hyperkalemia -secondary to acute renal failure, peaked T waves on presentation EKG. Received calcium gluconate 1gram IV to stabilize the cardiac membrane in ED. He was given 10 units regular insulin, 25g IV dextrose, Kayelexate. 5. Acid/Base: ABG 7.12/02/69/ -Anion gap metabolic acidosis with acute respiratory compensation. Lactic acidosis-elevated at 9.7 on admission, CO2 16 on admission. Anion gap 27 on admission, secondary to elevated lactic acid sodium bicarbonate drip began in ED , pH 7.2, and resuscitated on NS IVF hydration. 6. Positive troponins -most likely secondary to demand ischemia in the setting of acute hypoxic respiratory failure. Initial trop trended down from 1 to 0.36. 7. Atrial fibrillation -INR therapeutic 2.73 on coumadin. Daily PT/INR were monitored, dosed coumadin 7.5mg 8. H/o of HepC -Elevated AST/ALT 9. Depression/Anxiety * Celexa increased from 20mg to 30mg daily Allergies: Coded Allergies: NO KNOWN ALLERGIES (UNKNOWN 04/21/17) Pertinent Lab Results: 04/19/17 Urine toxicology positive for opiates and amphetamines 04/19/17 ABG 7.04/19/17-2042 CT ABD & PELVIS W/O IV CONTRAS; CT CHEST WO IV CONTRAST IMPRESSION: Bilateral lower lobe pneumonia with patchy inferior right upper lobe airspace disease. Recommendation is for a followup chest series to be obtained following treatment and/or resolution of symptoms to assure resolution of this appearance. Left grade 1-2 hydroureteronephrosis without a demonstrable obstructive ureteral calculus. Hiatal hernia. 04/19/17-2247 CT HEAD WO IV CONTRAST IMPRESSION: No evidence for acute intracranial injury. Stable age-appropriate appearance of the brain. 04/20/17-599 ECHOCARDIOGRAM CONCLUSIONS Normal size left ventricle. Normal left ventricular wall thickness. Normal left ventricular ejection fraction visually estimated at > 65%. Normal left ventricular diastolic filling pattern for age. Mildly increased resting left ventricular outflow tract velocity (1.6 m/s). Moderate right ventricular dilatation. Normal right atrial size. Mild left atrial dilatation. Trace tricuspid regurgitation. Mild pulmonary hypertension. Dilated inferior vena cava. 04/20/[id number]/KIDNEY IMPRESSION: 1. Bilaterally, kidneys are normal. No hydronephrosis seen. 2. Bladder decompressed by Cooney catheter and not evaluated. 04/21/17 XRY-PORTABLE CHEST XRAY IMPRESSION: Multifocal scattered areas of atelectasis. No evolving focal pneumonia. 04/21/17 US-EXT BILAT VENOUS DOPPLER IMPRESSION: Normal triplex scan without evidence of deep venous thrombosis involving the lower extremities. 04/22/17 US-LIMITED ABDOMEN IMPRESSION: 1. Diffuse mild gallbladder wall thickening is seen. This is a nonspecific finding in the setting of acute hepatitis and may be secondary to the hepatitis. Clinical correlation requested to exclude chronic cholecystitis. 2. No gallstones or pericholecystic fluid. 3. Pancreatic tail obscured partially by overlying bowel gas. Disposition Summary Disposition Principal Diagnosis: Opiate overdose Additional Diagnosis: Acute hypoxic failure Discharge Disposition: home or self care Discharge Instructions General Discharge Information Code Status: Full Code Patient's Diet: Mechanical soft, regular thin Patient's Activity: As tolerated Follow-Up Instructions/Appts: Follow up with your dip painter within 1-2 weeks after discharge Follow up with the revenue agent within 1-2 weeks after discharge Please follow-up with primary care doctor within 1-2 weeks after discharge follow up with your glass blowing lathe operator in 1-2 weeks after discharge. Medications at Discharge Discharge Medications: Stop taking the following medications: Citalopram Hydrobromide (Citalopram HBr) 20 MG TABLET ORAL DAILY Qty = 45 Continue taking these medications: Omeprazole (Prilosec) 40 MG ECC 1 Tablet ORAL DAILY Comments: Last Taken: 03/05/15 Time: 0530 Warfarin Sodium (Coumadin) 7.5 MG TABLET 1 Tablet ORAL DAILY Qty = 90 Comments: LAST TAKEN: 04/22/17 TIME : 4:36P.M Start taking the following new medications: Amoxicillin/Clavulanate Potass (Amox-Clav 875-125 MG Tablet) 875 MG-125 MG TABLET 875 Milligram ORAL EVERY 12 HOURS Qty = 7 No Refills Instructions: . Comments: Last Taken:04/23/17 Time:9:39A.M Citalopram Hydrobromide (Citalopram HBr) 10 MG TABLET 30 Milligram ORAL DAILY Qty = 30 No Refills Comments: Last Taken:04/23/17 Time:9:39A.M Folic Acid (Folic Acid) 1 MG TABLET 1 Tablet ORAL DAILY Qty = 30 No Refills Comments: Last Taken:04/23/17 Time:9:39A.M Thiamine HCl (Thiamine HCl) 100 MG TABLET 1 Tablet ORAL DAILY Qty = 30 No Refills Comments: Last Taken:04/23/17 Time:9:39A.M Copies To: ANIYAH BURRIS,MARY Body; RAMU BURRIS,DARIUSZ Boyd; ANDREA BURRIS,TOMMIE Attending MD Review Statement Documenting Attending: DANYA ESCALONA MD Other Findings: 72-y-o-w-m w/ hx of depression, suicidal ideation, hep C, Peñaloza's esophagus, Peñaloza's ulcer, esophagitis, multilobar PNA, previous acute hypoxemic respiratory failure requiring intubation, previous Staph aureus bacteremia, previous AF, previous PE on warfarin and Etoh abuse/withdrawal and polysubstance abuse w/ previous hospitalizations for OD who presented to the ED on 2016 w/ AMS secondary to opioid abuse/OD that has improved with naloxone w/ initial acute hypoxic respiratory failure, CUATE, hyperkalemia, & lactic acidosis w/ a Troponin I elevation w/o acute ECG changes to suggest ischemia/injury. Patient transferred to floor gen/med service. Patient denies any new compliants. Vitals stable. No abdominal pain, no nausea, pysch signed off. LFTs trending down, f/u o/p Dr Helen MAYERS for Hep C. INR subtherapeutic resume home dose coumadin at d.c, f/u INR o/p with PCP. SW consulted. c/w oral abx for 7 days. Patient on room air and independent, Patient discharged to home in stable condition.
== END 2017-04-23 18:30 | DRG 917 ==
LOC: ERH 18:37 → CRI 21:01 → ERHI 21:01 → 1NO 21:01 → ENRESERV 21:54 → CRI 23:30 → 1NO 04-22 23:24 → ENPENDDIS 04-23 13:44 → 1NO 04-23 18:30
PROVIDERS: Internal Medicine; Internal Medicine Cardiovascular Disease; ADMIT Student in an Organized Health Care Education/Training Program
DX: T40.1X1A Poisoning by heroin, accidental (unintentional), initial encounter (principal); J69.0 Pneumonitis due to inhalation of food and vomit; J96.01 Acute respiratory failure with hypoxia; N17.9 Acute kidney failure, unspecified; E87.4 Mixed disorder of acid-base balance; E87.3 Alkalosis; I24.8 Other forms of acute ischemic heart disease; I48.91 Unspecified atrial fibrillation; E86.0 Dehydration; N13.2 Hydronephrosis with renal and ureteral calculous obstruction; F11.10 Opioid abuse, uncomplicated; Y92.009 Unspecified place in unspecified non-institutional (private) residence as the place of occurrence of the external cause; E87.5 Hyperkalemia; Z86.711 Personal history of pulmonary embolism; Z79.01 Long term (current) use of anticoagulants; F41.8 Other specified anxiety disorders; K21.9 Gastro-esophageal reflux disease without esophagitis; K22.70 Barrett's esophagus without dysplasia; F10.20 Alcohol dependence, uncomplicated; Z86.14 Personal history of Methicillin resistant Staphylococcus aureus infection; I95.2 Hypotension due to drugs; T40.2X5A Adverse effect of other opioids, initial encounter; B18.2 Chronic viral hepatitis C
CPT/HCPCS: 1NP; 84133; 84300; CCU; 36415; 74176; 76775; 80307; 81001; 82436; 82570; 82693; 84600; 87040; 87070; 87086; 93005; 93010; 93306; 93970; 96374; 96375; 96376; 97116-GO; 97161-GP; 99291; G0480; J0610; J1815; J1940; J2310; J2405; J3490; J7060